=== PATIENT | female | born 2005 | race Caucasian/White ===

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

== ENCOUNTER → 2024-02-25 | Outpatient (CLI) | payer OTHER ==
[~2024-02-25] MED LIST changes: +ONDA4ODT MM; +Prednisone20 MG PO
[2024-03-04 15:39] LABS: C DIFFICILE DNA NEGATIVE (Negative)
[2024-03-08 06:26] LABS: CALPROTECTIN,FECAL 2650 ug/g (<=49)
== END ==
LOC: LAB SHORT 11:45 → LAB 11:45
PROVIDERS: Pediatrics Pediatric Gastroenterology
DX: K50.80 Crohn's disease of both small and large intestine without complications (principal)
CPT/HCPCS: 83993; 87493

== ENCOUNTER 2024-03-18 10:54 | Inpatient (IN) | payer OTHER ==
[~2024-03-18] VITALS: Ht 160 cm; Wt 54.4 kg
[2024-03-18] MEDS ORDERED: NS 1,000 ML IV SCH ×3 (11:30→23:05)
[2024-03-18] MEDS ORDERED: Scopolamine Hydrobromide Patch TOP ONE (11:30)
[2024-03-18 11:58] LABS: BASOPHILS ABSOLUTE AUTO 0.12 K/mm3 (0.00-0.23); BASOPHILS PERCENT AUTO 1 % (0-2); EOSINOPHILS ABSOLUTE AUTO 0.11 K/mm3 (0.00-0.68); EOSINOPHILS PERCENT AUTO 1 % (0-6); Hematocrit 37.9 % (33.0-51.0); Hemoglobin 12.3 g/dL (11.5-16.0); IMMATURE GRAN ABSOLUTE AUTO 0.08 K/mm3 (0.00-0.10); IMMATURE GRAN PERCENT AUTO 1 % (0-1); LYMPHOCYTES ABSOLUTE AUTO 3.61 K/mm3 (0.84-5.20); LYMPHOCYTES PERCENT AUTO 27 % (21-46); MONOCYTES ABSOLUTE AUTO 1.89 K/mm3 (0.16-1.47); MONOCYTES PERCENT AUTO 14 % (4-13); Mean Corpuscular HGB 27.1 pg (26.0-34.0); Mean Corpuscular HGB Conc 32.5 g/dL (31.5-36.5); Mean Corpuscular Volume 84 fL (80-100); NEUTROPHILS ABSOLUTE AUTO 7.46 K/mm3 (1.96-9.15); NEUTROPHILS PERCENT AUTO 56 % (41-73); Platelet Count 408 K/mm3 (150-400); RDW Coefficient Variation 14.2 % (11.7-14.2); RDW Standard Deviation 43.3 fL (35.1-46.3); Red Blood Cell Count 4.54 M/mm3 (3.80-5.20); White Blood Cell Count 13.27 K/mm3 (4.00-11.30)
[2024-03-18 12:16] LABS: Albumin, Blood 2.4 g/dL (3.4-5.0); Albumin/Globulin Ratio 0.4 (0.8-1.8); Bilirubin, Total 0.2 mg/dL (0.1-1.0); Bun/Creatinine Ratio 13.1 (12.0-20.0); Calcium, Blood 9.1 mg/dL (8.5-10.1); Creatinine, Blood 0.76 mg/dL (0.40-1.00); Globulin, Blood 6.3 g/dL (2.2-4.0); Potassium, Blood 3.8 mmol/L (3.5-5.5); Total Protein, Blood 8.7 g/dL (6.4-8.2)
[2024-03-18] MEDS ORDERED: Ondansetron HCl 2 MG / ML 2ML Vial IV ONE (15:40)
[2024-03-18] MEDS ORDERED: Cefepime HCl 1,000 MG in NS 100 ML IV ONE (17:45)
[2024-03-18] MEDS ORDERED: Ondansetron HCl 2 MG / ML 2ML Vial IV PRN (23:05)
[2024-03-18] MEDS ORDERED: FLU VACC TS2024-25(6MOS UP)/PF 45 MCG/0.5 ML SYRINGE IM SCH (23:05)
[2024-03-18] MEDS ORDERED: FentaNYL Citrate 50 MCG/ML 2 ML Injection IV PRN (23:05)
[2024-03-18] MEDS ORDERED: Piperacillin/Tazobactam Sod 4.5 GM in NS 100 ML IV SCH (23:23)
[2024-03-18] MEDS ORDERED: Albumin (Human) 25gm/100ml 100 ML IV ONE (23:25)
[2024-03-18 23:30] VITALS: BP 111/86
--- NOTE | 2024-03-19 06:03 | NUR ---
SHIFT SUMMARY: RESUMED CARE FOR THIS PT @ 0115. PT SLEPT THROUGHOUT THE MORNING. NO ACUTE CHANGES OR COMPLICATIONS. BED IN LOW POSITION, CALL LIGHT WITHIN REACH. WILL CONTINUE TO MONITOR.
[2024-03-19 06:10] VITALS: BP 99/58
[2024-03-19 06:31] LABS: BASOPHILS ABSOLUTE AUTO 0.11 K/mm3 (0.00-0.23); BASOPHILS PERCENT AUTO 1 % (0-2); EOSINOPHILS ABSOLUTE AUTO 0.22 K/mm3 (0.00-0.68); EOSINOPHILS PERCENT AUTO 2 % (0-6); Hematocrit 30.1 % (33.0-51.0); Hemoglobin 9.7 g/dL (11.5-16.0); IMMATURE GRAN ABSOLUTE AUTO 0.04 K/mm3 (0.00-0.10); IMMATURE GRAN PERCENT AUTO 0 % (0-1); LYMPHOCYTES PERCENT AUTO 28 % (21-46); MONOCYTES ABSOLUTE AUTO 1.94 K/mm3 (0.16-1.47); MONOCYTES PERCENT AUTO 16 % (4-13); Mean Corpuscular HGB 26.8 pg (26.0-34.0); Mean Corpuscular HGB Conc 32.2 g/dL (31.5-36.5); Mean Corpuscular Volume 83 fL (80-100); Mean Platelet Volume 8.2 fL (9.1-12.4); NEUTROPHILS ABSOLUTE AUTO 6.74 K/mm3 (1.96-9.15); NEUTROPHILS PERCENT AUTO 54 % (41-73); Platelet Count 371 K/mm3 (150-400); RDW Coefficient Variation 14.2 % (11.7-14.2); Red Blood Cell Count 3.62 M/mm3 (3.80-5.20); White Blood Cell Count 12.55 K/mm3 (4.00-11.30)
[2024-03-19 07:26] LABS: Albumin, Blood 2.6 g/dL (3.4-5.0); Albumin/Globulin Ratio 0.5 (0.8-1.8); Bilirubin, Total 0.4 mg/dL (0.1-1.0); Bun/Creatinine Ratio 8.4 (12.0-20.0); Calcium, Blood 8.6 mg/dL (8.5-10.1); Creatinine, Blood 0.72 mg/dL (0.40-1.00); Globulin, Blood 5.2 g/dL (2.2-4.0); Potassium, Blood 3.8 mmol/L (3.5-5.5); Total Protein, Blood 7.8 g/dL (6.4-8.2)
[2024-03-19 08:14] VITALS: BP 105/70
[2024-03-19] MEDS ORDERED: PredniSONE 20 MG Tab PO SCH (09:00)
--- NOTE | 2024-03-19 10:49 | NUR ---
RECIEVED A CALL FROM [facility], CURRENTLY NO BEDS AVAILABLE, PT IS STILL ON THE WAITING LIST
[2024-03-19 10:57] LABS: Adenovirus F 40/41 Not Detected (NOT DETECT); Astrovirus Not Detected (NOT DETECT); Campylobacter Sp Not Detected (NOT DETECT); Cryptosporidium Not Detected (NOT DETECT); Cyclospora Cayetanensis Not Detected (NOT DETECT); E. Coli O157 Not Detected (NOT DETECT); Entamoeba Histolytica Not Detected (NOT DETECT); Enteroaggregative E. coli-EAEC Not Detected (NOT DETECT); Enteropathogenic E. coli-EPEC Not Detected (NOT DETECT); Enterotoxigenic E. coli-ETEC Not Detected (NOT DETECT); Giardia Lamblia Not Detected (NOT DETECT); Norovirus GI/GII Not Detected (NOT DETECT); Plesiomonas Shigelloides Not Detected (NOT DETECT); Rotavirus A Not Detected (NOT DETECT); Salmonella Sp Not Detected (NOT DETECT); Sapovirus Not Detected (NOT DETECT); Shiga Toxin-prod E. coli-STEC Not Detected (NOT DETECT); Shigella/Enteroin E. coli-EIEC Not Detected (NOT DETECT); Vibrio Cholerae Not Detected (NOT DETECT); Vibrio Sp Not Detected (NOT DETECT); Yersinia Enterocolitica Not Detected (NOT DETECT)
[2024-03-19 15:27] VITALS: BP 84/57
[2024-03-19 15:29] VITALS: BP 91/55
[2024-03-19] MEDS ORDERED: Vitamin D1000 UNI1 PO (16:39)
[2024-03-19] MEDS ORDERED: SKYRIZI600 MG/10 IV (16:40)
--- NOTE | 2024-03-19 17:04 | NUR ---
SUMMARY PT RESTING IN BED VISITING WITH FAMILY, PT HAS BEEN PLEASANT AND COOPERATIVE WITH CARE T/O THE DAY, HAS DECLINED ANY PAIN MEDICINE T/O THE DAY, UP IN THE ROOM INDEPENDENTLY, CURRENTLY WAITING FOR A BED AT [facility], VSS, WILL CONTINUE TO MONITOR
[2024-03-19 20:31] VITALS: BP 96/60
[2024-03-20] MEDS ORDERED: NS 250 ML IV PRN (00:20)
--- NOTE | 2024-03-20 01:44 | NUR ---
RETURNED CALL TO YUNIOR ALVAREZ AT [facility] TO GIVE UPDATE ON PATIENT. UPDATE-PATIENT STILL HAVING LOOSE BM'S, GI PANEL DONE AND WAS NEGATIVE. 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 PATIENT REPORTED NAUSEA AND OVERALL NOT FEELING WELL-DENIED ZOFRAN AT THIS TIME. PATIENT REPORTS PAIN-DENIED NEED FOR PAIN MEDICATIONS AT THIS TIME.
[2024-03-20 04:53] VITALS: BP 94/59
--- NOTE | 2024-03-20 05:12 | NUR ---
SHIFT SUMMARY. PATIENT IS A&OX4. PATIENT IS INDEPENDENT IN ROOM. PATIENT HAS PINROSE DRAIN IN. PATIENT CALLS APPROPRIATELY AND IS ABLE TO MAKE HER NEEDS KNOWN. PATIENT REPORTS THIS SHIFT THAT SHE IS NOT FEELING WELL-THIS RN ASSESSED FOR NAUSEA/PAIN-PATIENT DENIED NEED FOR PAIN OR ANTINAUSEA MEDS. UPDATE GIVEN TO ANTONIO AT [facility]-AT THIS TIME ANTONIO REPORTS THAT THEY DO NOT KNOW WHEN A BED WILL BE AVALIABLE AND THEY WILL CALL APPROX. ONCE A DAY FOR UPDATE UNTIL BED BECOMES AVALIABLE. TELE IS ON WITH LEADS IN PLACE-NO NOTED EVENTS THIS SHIFT. BED IS LOCKED IN THE LOWEST POSITION WITH CALL LIGHT IN REACH. CARE IS ONGOING. REACH. CARE IS ONGOING.
[2024-03-20 05:32] LABS: BASOPHILS ABSOLUTE AUTO 0.09 K/mm3 (0.00-0.23); BASOPHILS PERCENT AUTO 1 % (0-2); EOSINOPHILS ABSOLUTE AUTO 0.09 K/mm3 (0.00-0.68); EOSINOPHILS PERCENT AUTO 1 % (0-6); Hematocrit 29.5 % (33.0-51.0); Hemoglobin 9.3 g/dL (11.5-16.0); IMMATURE GRAN ABSOLUTE AUTO 0.09 K/mm3 (0.00-0.10); IMMATURE GRAN PERCENT AUTO 1 % (0-1); LYMPHOCYTES ABSOLUTE AUTO 4.39 K/mm3 (0.84-5.20); LYMPHOCYTES PERCENT AUTO 29 % (21-46); MONOCYTES ABSOLUTE AUTO 2.66 K/mm3 (0.16-1.47); MONOCYTES PERCENT AUTO 18 % (4-13); Mean Corpuscular HGB 26.8 pg (26.0-34.0); Mean Corpuscular HGB Conc 31.5 g/dL (31.5-36.5); Mean Corpuscular Volume 85 fL (80-100); Mean Platelet Volume 8.8 fL (9.1-12.4); NEUTROPHILS ABSOLUTE AUTO 7.65 K/mm3 (1.96-9.15); NEUTROPHILS PERCENT AUTO 51 % (41-73); Platelet Count 384 K/mm3 (150-400); RDW Coefficient Variation 14.6 % (11.7-14.2); RDW Standard Deviation 45.5 fL (35.1-46.3); Red Blood Cell Count 3.47 M/mm3 (3.80-5.20); White Blood Cell Count 14.97 K/mm3 (4.00-11.30)
[2024-03-20 05:52] LABS: Albumin, Blood 2.4 g/dL (3.4-5.0); Albumin/Globulin Ratio 0.5 (0.8-1.8); Bilirubin, Total 0.2 mg/dL (0.1-1.0); Bun/Creatinine Ratio 12.9 (12.0-20.0); Calcium, Blood 8.9 mg/dL (8.5-10.1); Creatinine, Blood 0.62 mg/dL (0.40-1.00); Globulin, Blood 5.1 g/dL (2.2-4.0); Potassium, Blood 4.3 mmol/L (3.5-5.5); Total Protein, Blood 7.5 g/dL (6.4-8.2)
[2024-03-20] MEDS ORDERED: NS 1,000 ML IV SCH (07:00)
[2024-03-20 07:57] VITALS: BP 96/59
[2024-03-20] MEDS ORDERED: Cholecalciferol 1000 Unit Tablet (=25MCG) PO SCH (09:00)
[2024-03-20] MEDS ORDERED: Fluticasone 0.05% Nasal Spray SCH ×2 (09:00)
[2024-03-20] MEDS ORDERED: Lactobacil 2-S.Thermo-Bifido 1 1 Cap PO SCH (09:00)
[2024-03-20] MEDS ORDERED: Calcium Carbonate 500 MG Tab Chew PO PRN (09:35)
--- NOTE | 2024-03-20 11:47 | NUR ---
"Spiritual Care Visit | Pt. Request Pt. is awake in bed when she welcomes my visit. Mom is at bedside. Pt. verbalized curiousity as to whom had contaced this head of strategy. Normalized the Pt. experience and listened with interest and empathy. Facilitated some life review, and considered some matters of es and belief. The Pt. displayed a growing sense of trust and verbalized gratitude for the spiritual care visit."
[2024-03-20] MEDS ORDERED: Multivitamins/Minerals 1 Tab PO SCH (12:00)
[2024-03-20 16:43] VITALS: BP 113/82
[2024-03-20] MEDS ORDERED: Ferrous Sulfate 325 MG Tab PO SCH (17:00)
--- NOTE | 2024-03-20 18:29 | NUR ---
END OF SHIFT SUMMARY: A&Ox4. PLEASANT AND COOPERATIVE WITH CARE. CALLS APPROPRIATELY AND IS ABLE TO ADVOCATE NEEDS EFFECTIVELY. AMBULATES INDEPENDENTLY WITHIN THE ROOM. CONTINENT OF BOWEL AND BLADDER WITH SOME ANAL LEAKAGE SECONDARY TO PINROSE PLACEMENT AFTER ANAL FISTULA REPAIR (S/P 2 WEEKS). LBM TODAY BUT DOES NOT FEEL THOUGH IT S COMPLETED . MEDS WHOLE, DVN-EX-R-TIME WITH FLUIDS. TELE PAIN. TWO WEEKS S/P PERIANAL FISTULA REPAIR WITH KIRAN DRAIN PLACEMENT; DRAIN PATENT. PATIENT C / O GENERALIZED MALAISE WITHOUT FEVER TODAY. WAS SCHEDULED FOR HOME INFUSION OF SKYRIZI WITH [facility] INFUSION NURSE, BUT WAS CANCELED DUE TO HER BEING IN THE HOSPITAL. MEDICATION IS AT PATIENT'S HOUSE AND MOM IS WONDERING IF THEY SHOULD HAVE THE INFUSION NURSE COME HERE TO ADMINISTER MEDICATION; ADVISED SHE FOLLOW-UP WITH [facility] INFUSION NURSE FOR FURTHER INSTRUCTION. BED IN LOWEST POSITION. CALL LIGHT WITHIN REACH. ALL NEEDS MET. REPORT TO ONCOMING NURSE.
[2024-03-20 20:51] VITALS: BP 118/84
[2024-03-21 04:40] VITALS: BP 86/55
[2024-03-21] MEDS ORDERED: Lactated Ringer's 500 ML IV ONE (04:55)
[2024-03-21 05:04] LABS: BASOPHILS ABSOLUTE AUTO 0.08 K/mm3 (0.00-0.23); BASOPHILS PERCENT AUTO 1 % (0-2); EOSINOPHILS ABSOLUTE AUTO 0.11 K/mm3 (0.00-0.68); EOSINOPHILS PERCENT AUTO 1 % (0-6); Hematocrit 26.2 % (33.0-51.0); Hemoglobin 8.4 g/dL (11.5-16.0); IMMATURE GRAN PERCENT AUTO 1 % (0-1); LYMPHOCYTES ABSOLUTE AUTO 5.11 K/mm3 (0.84-5.20); LYMPHOCYTES PERCENT AUTO 40 % (21-46); MONOCYTES ABSOLUTE AUTO 1.97 K/mm3 (0.16-1.47); MONOCYTES PERCENT AUTO 15 % (4-13); Mean Corpuscular HGB 27.3 pg (26.0-34.0); Mean Corpuscular HGB Conc 32.1 g/dL (31.5-36.5); Mean Corpuscular Volume 85 fL (80-100); Mean Platelet Volume 8.7 fL (9.1-12.4); NEUTROPHILS ABSOLUTE AUTO 5.46 K/mm3 (1.96-9.15); NEUTROPHILS PERCENT AUTO 43 % (41-73); Platelet Count 372 K/mm3 (150-400); RDW Coefficient Variation 14.9 % (11.7-14.2); RDW Standard Deviation 45.8 fL (35.1-46.3); Red Blood Cell Count 3.08 M/mm3 (3.80-5.20); White Blood Cell Count 12.83 K/mm3 (4.00-11.30)
[2024-03-21 05:38] LABS: Albumin, Blood 2.3 g/dL (3.4-5.0); Albumin/Globulin Ratio 0.5 (0.8-1.8); Bilirubin, Total 0.1 mg/dL (0.1-1.0); Bun/Creatinine Ratio 7.7 (12.0-20.0); Creatinine, Blood 0.65 mg/dL (0.40-1.00); Globulin, Blood 4.9 g/dL (2.2-4.0); Potassium, Blood 3.7 mmol/L (3.5-5.5); Total Protein, Blood 7.2 g/dL (6.4-8.2)
[2024-03-21 05:49] VITALS: BP 111/75
--- NOTE | 2024-03-21 05:55 | NUR ---
PATIENT REPORTS HER CHEST FEELS TIGHT AND LIKE ITS RACING.
--- NOTE | 2024-03-21 06:23 | NUR ---
HOSPITALIST CONTACTED. DR. RUFF CONTACTED FOLLOWING PATIENTS EKG SHOWING AN UNDERTERMINED RHYTHM.
--- NOTE | 2024-03-21 06:34 | NUR ---
AT BEDSIDE. REVIEWED EKG AND PATIENTS LABS. ORDERED FOR A REPEAT HNH IN 4 HOURS R/T A DECREASE IN HEAMAGLOBIN AND TO CONTINUE TO MONITOR WITH TELEMETRY.
--- NOTE | 2024-03-21 06:57 | NUR ---
SHIFT SUMMARY. PATIENT IS A&OX4. PATIENT REPORTS INCREASED TIREDNESS THIS SHIFT. PATIENT REPORTS THAT HER STOLLD HAVE A PINK COLOR TO THEM. PATIENTS Hgb HAS DECREASED FROM 9.4 TO 8.3-SEE PREVIOUS NOTE. TELE ON WITH LEADS IN PLACE-NOTED EPISODES THIS SHIFT; SEE PREVIOUS NOTES. PATIENT CALLS APPROPRIATELY. PATIENT RECEIVING ABX PER ORDERS. BED IS LOCKED IN THE LOWEST POSITION WITH CALL LIGHT IN REACH. CARE IS ONGOING.
[2024-03-21 07:38] VITALS: BP 99/60
[2024-03-21] MEDS ORDERED: NS 1,000 ML IV SCH (09:00)
[2024-03-21 10:12] LABS: Hematocrit 29.3 % (33.0-51.0); Hemoglobin 9.4 g/dL (11.5-16.0)
--- NOTE | 2024-03-21 13:49 | NUR ---
PATIENT DENIED IRON AND MVI STATING SHE WAS TOLD BY HER GI THAT SHE NEEDS TO HAVE THESE DONE INFUSIONS RATHER THAN PILLS DUE TO HER CROHN'S.
--- NOTE | 2024-03-21 13:49 | NUR ---
CALL TO [facility]: PATIENT TELE READING SINUS <--> SINUS ARRYTHMIA.
[2024-03-21 14:45] LABS: Hemoglobin 10.9 g/dL (11.5-16.0); Mean Corpuscular HGB 26.8 pg (26.0-34.0); Mean Corpuscular HGB Conc 32.1 g/dL (31.5-36.5); Mean Corpuscular Volume 84 fL (80-100); Mean Platelet Volume 8.5 fL (9.1-12.4); Platelet Count 418 K/mm3 (150-400); RDW Coefficient Variation 14.9 % (11.7-14.2); RDW Standard Deviation 45.5 fL (35.1-46.3); Red Blood Cell Count 4.06 M/mm3 (3.80-5.20); White Blood Cell Count 10.59 K/mm3 (4.00-11.30)
[2024-03-21 16:05] VITALS: BP 93/57
[2024-03-21 19:15] VITALS: BP 108/67
--- NOTE | 2024-03-21 19:19 | NUR ---
DAY SHIFT SUMMARY: A&Ox4. PLEASANT AND COOPERATIVE WITH CARE. CALLS APPROPRIATELY AND IS ABLE TO ADVOCATE NEEDS EFFECTIVELY. AMBULATES INDEPENDENTLY WITHIN THE ROOM. CONTINENT OF BOWEL AND BLADDER; ATTENDS FOR WOUND DRAINAGE AND SEEPAGE SECONDARY TO S/P PERIRECTAL FISTULA REPAIR. TELE SINUS TO SINUS ARRHYTHMIA THROUGHOUT THE DAY. PROVIDER AND RESIDENT NOTIFIED. NO C / O PAIN. SOME NAUSEA FOR WHICH SHE DECLINED OFFER OF ANTIEMETIC AT FIRST, BUT EVENTUALLY AGREED TO DOSE OF ONDANSETRON. HGB STABILIZED; NO NEED FOR BLOOD ADMINISTRATION. BED IN LOWEST POSITION. CALL LIGHT WITHIN REACH. ALL NEEDS MET. REPORT TO ONCOMING RN.
[2024-03-21] MEDS ORDERED: DiphenhydrAMINE HCL 25 MG Cap PO PRN (23:10)
[2024-03-22 03:21] VITALS: BP 100/61
[2024-03-22 05:45] LABS: BASOPHILS ABSOLUTE AUTO 0.05 K/mm3 (0.00-0.23); BASOPHILS PERCENT AUTO 0 % (0-2); EOSINOPHILS ABSOLUTE AUTO 0.11 K/mm3 (0.00-0.68); EOSINOPHILS PERCENT AUTO 1 % (0-6); Hematocrit 27.1 % (33.0-51.0); Hemoglobin 8.6 g/dL (11.5-16.0); IMMATURE GRAN ABSOLUTE AUTO 0.15 K/mm3 (0.00-0.10); IMMATURE GRAN PERCENT AUTO 1 % (0-1); LYMPHOCYTES PERCENT AUTO 44 % (21-46); MONOCYTES PERCENT AUTO 13 % (4-13); Mean Corpuscular HGB Conc 31.7 g/dL (31.5-36.5); Mean Corpuscular Volume 85 fL (80-100); Mean Platelet Volume 8.9 fL (9.1-12.4); NEUTROPHILS ABSOLUTE AUTO 4.73 K/mm3 (1.96-9.15); NEUTROPHILS PERCENT AUTO 41 % (41-73); Platelet Count 379 K/mm3 (150-400); RDW Coefficient Variation 14.7 % (11.7-14.2); RDW Standard Deviation 45.1 fL (35.1-46.3); Red Blood Cell Count 3.19 M/mm3 (3.80-5.20); White Blood Cell Count 11.64 K/mm3 (4.00-11.30)
[2024-03-22 06:02] LABS: Albumin, Blood 2.2 g/dL (3.4-5.0); Albumin/Globulin Ratio 0.4 (0.8-1.8); Bilirubin, Total 0.2 mg/dL (0.1-1.0); Bun/Creatinine Ratio 8.7 (12.0-20.0); Calcium, Blood 8.8 mg/dL (8.5-10.1); Creatinine, Blood 0.69 mg/dL (0.40-1.00); Potassium, Blood 3.5 mmol/L (3.5-5.5); Total Protein, Blood 7.2 g/dL (6.4-8.2)
[2024-03-22 07:12] VITALS: BP 100/70
[2024-03-22] MEDS ORDERED: CENTRUM SILVER1 EAC2 PO (11:39)
[2024-03-22] MEDS ORDERED: FERSU300 PO (11:39)
[2024-03-22] MEDS ORDERED: PRED20 PO (11:40)
[2024-03-22] MEDS ORDERED: VISBIOME 112.51 EACH PO (11:40)
[2024-03-22] MEDS ORDERED: AMOCLA250S PO (11:43)
--- NOTE | 2024-03-22 14:52 | NUR ---
DISCHARGE SUMMARY: A&Ox4. PLEASANT AND COOPERATIVE WITH CARE. CALLS APPROPRIATELY AND IS ABLE TO ADVOCATE NEEDS EFFECTIVELY. AMBULATES INDEPENDENTLY WITHIN THE ROOM. CONTINENT OF BOWEL AND BLADDER. CONTINUES TO EXPERIENCE FREQUENT DIARRHEA R/T CROHN'S FLARE. MEDS WHOLE WITH FLUIDS. TELE SINUS <--> SINUS ARRYTHMIA DETERMINED TO BE RELATED TO ANXIETY. NO C/O PAIN OR DISCOMFORT. PINROSE IN PLACE AND DRAINING TO GRAVITY. SIGNIFICANTLY DECREASED SWELLING AND PAIN IN RECTUM AND LABIA R/T CELLULITIS. MEDICATIONS FAXED TO [facility]. INSTRUCTED TO FOLLOW-UP WITH PCP AND [facility] SURGEON AND INFUSION NURSE ALREADY DISCUSSED. PT LEFT FLOOR AT 1210 WITH ALL BELONGINGS AND DISCHARGE PACKET, ESCORTED BY FATHER, WHO ALSO PROVIDED TRANSPORTATION.
== END 2024-03-22 12:06 | disposition home or self-care (01) | DRG 862 ==
LOC: ER 10:54 → ERHOLD 10:57 → MEDS 10:57 → ER 21:52 → MEDS 21:52 → ERHOLD 21:52 → MEDS 23:11 → ERHOLD 23:11 → MEDS 23:11
PROVIDERS: Family Medicine; Physician Assistant; Student in an Organized Health Care Education/Training Program; ADMIT Internal Medicine
DX: T81.44XA Sepsis following a procedure, initial encounter (principal); A41.9 Sepsis, unspecified organism; L03.317 Cellulitis of buttock; K50.90 Crohn's disease, unspecified, without complications; Z79.899 Other long term (current) drug therapy; K60.30 Anal fistula, unspecified; F32.A Depression, unspecified; D64.9 Anemia, unspecified; R09.81 Nasal congestion; I95.9 Hypotension, unspecified
CPT/HCPCS: 36415; 72193; 80053; 83690; 83735; 83880; 85014; 85018; 85025; 85027; 86850; 86900; 86901; 87040; 87507; 96361; 96365-59; 96375; 99284-25; A9270; J0692; J2405; J2543; J7030; J7050; J7120; J7512; P9047; Q9967

== ENCOUNTER → 2024-03-29 | Outpatient (CLI) | payer OTHER ==
[~2024-03-29] MED LIST changes: +AMOCLA250S PO; +CENTRUM SILVER1 EAC2 PO; +FERSU300 PO; +PRED20 PO; +SKYRIZI600 MG/10 IV; +VISBIOME 112.51 EACH PO; +Vitamin D1000 UNI1 PO
[2024-03-29 17:44] LABS: BASOPHILS ABSOLUTE AUTO 0.11 K/mm3 (0.00-0.23); BASOPHILS PERCENT AUTO 1 % (0-2); EOSINOPHILS ABSOLUTE AUTO 0.08 K/mm3 (0.00-0.68); EOSINOPHILS PERCENT AUTO 1 % (0-6); Hematocrit 35.2 % (33.0-51.0); Hemoglobin 11.3 g/dL (11.5-16.0); IMMATURE GRAN ABSOLUTE AUTO 0.07 K/mm3 (0.00-0.10); IMMATURE GRAN PERCENT AUTO 1 % (0-1); LYMPHOCYTES PERCENT AUTO 31 % (21-46); MONOCYTES ABSOLUTE AUTO 2.21 K/mm3 (0.16-1.47); MONOCYTES PERCENT AUTO 15 % (4-13); Mean Corpuscular HGB 27.5 pg (26.0-34.0); Mean Corpuscular HGB Conc 32.1 g/dL (31.5-36.5); Mean Corpuscular Volume 86 fL (80-100); Mean Platelet Volume 8.4 fL (9.1-12.4); NEUTROPHILS ABSOLUTE AUTO 8.11 K/mm3 (1.96-9.15); NEUTROPHILS PERCENT AUTO 53 % (41-73); Platelet Count 403 K/mm3 (150-400); RDW Coefficient Variation 14.4 % (11.7-14.2); RDW Standard Deviation 44.5 fL (35.1-46.3); Red Blood Cell Count 4.11 M/mm3 (3.80-5.20); White Blood Cell Count 15.28 K/mm3 (4.00-11.30)
[2024-03-29 17:59] LABS: C-REACTIVE PROTEIN, EXT RANGE 8.36 mg/dL (0.000-0.300)
[2024-03-29 18:09] LABS: Albumin, Blood 2.6 g/dL (3.4-5.0); Albumin/Globulin Ratio 0.5 (0.8-1.8); Bilirubin, Total 0.3 mg/dL (0.1-1.0); Bun/Creatinine Ratio 12.7 (12.0-20.0); Calcium, Blood 8.6 mg/dL (8.5-10.1); Creatinine, Blood 0.87 mg/dL (0.40-1.00); Globulin, Blood 5.3 g/dL (2.2-4.0); Potassium, Blood 4.4 mmol/L (3.5-5.5); Total Protein, Blood 7.9 g/dL (6.4-8.2)
== END ==
LOC: LAB SHORT 17:00 → LAB 17:00
PROVIDERS: Pediatrics Pediatric Gastroenterology
DX: K50.80 Crohn's disease of both small and large intestine without complications (principal)
CPT/HCPCS: 80053; 85025; 85651; 86140

== ENCOUNTER 2024-03-31 14:26 | Inpatient (IN) | payer OTHER ==
[~2024-03-31] VITALS: Ht 160 cm; Wt 63.7 kg
[2024-03-31] MEDS ORDERED: Ondansetron HCl 2 MG / ML 2ML Vial IV PRN ×2 (14:40→20:00)
[2024-03-31] MEDS ORDERED: NS 1,000 ML IV ONE (14:40)
[2024-03-31 15:12] LABS: BASOPHILS ABSOLUTE AUTO 0.09 K/mm3 (0.00-0.23); BASOPHILS PERCENT AUTO 1 % (0-2); EOSINOPHILS ABSOLUTE AUTO 0.11 K/mm3 (0.00-0.68); EOSINOPHILS PERCENT AUTO 1 % (0-6); Hematocrit 36.6 % (33.0-51.0); Hemoglobin 11.9 g/dL (11.5-16.0); IMMATURE GRAN ABSOLUTE AUTO 0.11 K/mm3 (0.00-0.10); IMMATURE GRAN PERCENT AUTO 1 % (0-1); LYMPHOCYTES ABSOLUTE AUTO 2.91 K/mm3 (0.84-5.20); LYMPHOCYTES PERCENT AUTO 20 % (21-46); MONOCYTES ABSOLUTE AUTO 1.76 K/mm3 (0.16-1.47); MONOCYTES PERCENT AUTO 12 % (4-13); Mean Corpuscular HGB 27.4 pg (26.0-34.0); Mean Corpuscular HGB Conc 32.5 g/dL (31.5-36.5); Mean Corpuscular Volume 84 fL (80-100); Mean Platelet Volume 8.7 fL (9.1-12.4); NEUTROPHILS ABSOLUTE AUTO 9.65 K/mm3 (1.96-9.15); NEUTROPHILS PERCENT AUTO 66 % (41-73); Platelet Count 396 K/mm3 (150-400); RDW Coefficient Variation 14.5 % (11.7-14.2); RDW Standard Deviation 44.1 fL (35.1-46.3); Red Blood Cell Count 4.34 M/mm3 (3.80-5.20); White Blood Cell Count 14.63 K/mm3 (4.00-11.30)
[2024-03-31 15:25] LABS: Alanine Aminotransfer (ALT/SGP 22 U/L (12-78); Albumin, Blood 2.5 g/dL (3.4-5.0); Albumin/Globulin Ratio 0.4 (0.8-1.8); Alk Phos 78 U/L (45-116); Anion Gap 10 mmol/L (3-11); Aspartate Aminotrans (AST/SGOT 38 U/L (12-37); Beta HCG, Quantitative, Serum <1 mIU/mL (0-3); Bilirubin, Total 0.3 mg/dL (0.1-1.0); Blood Urea Nitrogen 8 mg/dL (8-21); Bun/Creatinine Ratio 11.5 (12.0-20.0); CO2, Blood 27 mmol/L (21-32); Calcium, Blood 9.3 mg/dL (8.5-10.1); Chloride, Blood 104 mmol/L (98-108); Globulin, Blood 6.4 g/dL (2.2-4.0); Glomerular Filtration Rate 128 (60-); Glucose, Blood 96 mg/dL (70-99); Potassium, Blood 4.6 mmol/L (3.5-5.5); Sodium, Blood 136 mmol/L (136-145); Total Protein, Blood 8.9 g/dL (6.4-8.2)
[2024-03-31] MEDS ORDERED: Piperacillin/Tazobactam Sod 4.5 GM in NS 100 ML IV ONE (19:05)
[2024-03-31] MEDS ORDERED: Lactated Ringer's 1,000 ML IV SCH (20:00)
[2024-03-31] MEDS ORDERED: Morphine Sulfate 4 MG/1 ML Injection IV PRN (20:00)
[2024-03-31 20:45] LABS: C-REACTIVE PROTEIN, EXT RANGE 13.6 mg/dL (0.000-0.300); Magnesium, Blood 1.9 mg/dL (1.6-2.4)
[2024-03-31] MEDS ORDERED: NS 250 ML IV PRN (20:45)
[2024-03-31] MEDS ORDERED: Acetaminophen 325 MG TABLET PO PRN (20:55)
[2024-03-31] MEDS ORDERED: Ketorolac Tromethamine 15mg Vial IV ONE (21:00)
[2024-03-31] MEDS ORDERED: Ciprofloxacin 400MG/D5 200ML 200 ML IV SCH (21:00)
[2024-03-31] MEDS ORDERED: LORazepam 2 MG/ML 1ML Injection IV ONE (21:00)
[2024-03-31 21:20] VITALS: BP 113/76
[2024-03-31] MEDS ORDERED: FLU VACC TS2024-25(6MOS UP)/PF 45 MCG/0.5 ML SYRINGE IM ONE (22:00)
[2024-03-31 22:41] LABS: Source, Urine Clean Catch
[2024-03-31 22:45] LABS: Bilirubin, Urine Neg (Neg); Blood, Urine 2+ (Neg); Glucose Qualitative, Urine Neg (Neg); Ketones, Urine 2+ (Neg); Leukocyte Esterase, Urine 2+ (Neg); Nitrite, Urine Neg (Neg); Protein, Urine 2+ (Neg); Specific Gravity, Urine 1.015 (1.003-1.022); Urobilinogen, Urine NORM (Normal)
[2024-03-31 22:54] LABS: Appearance, Urine Hazy (Clear); Color, Urine Yellow (P-Yellow)
[2024-03-31 22:55] LABS: Bacteria Mod /hpf; Red Blood Cells, Urine 0-2 /hpf (0-2); Squamous Epithelial Cells Mod /hpf (Few)
[2024-04-01] VITALS (7 sets, daily range): BP systolic 84–115; BP diastolic 59–82
[2024-04-01] MEDS ORDERED: MethylPREDNISolone Sod Succ 40 MG VIAL IV SCH
[2024-04-01] MEDS ORDERED: MetroNIDAZOLE 500MG/NS 100 ml 100 ML IV SCH
[2024-04-01 00:06] LABS: Adenovirus F 40/41 Not Detected (NOT DETECT); Astrovirus Not Detected (NOT DETECT); Campylobacter Sp Not Detected (NOT DETECT); Cryptosporidium Not Detected (NOT DETECT); Cyclospora Cayetanensis Not Detected (NOT DETECT); E. Coli O157 Not Detected (NOT DETECT); Entamoeba Histolytica Not Detected (NOT DETECT); Enteroaggregative E. coli-EAEC Not Detected (NOT DETECT); Enteropathogenic E. coli-EPEC Not Detected (NOT DETECT); Enterotoxigenic E. coli-ETEC Not Detected (NOT DETECT); Giardia Lamblia Not Detected (NOT DETECT); Norovirus GI/GII Not Detected (NOT DETECT); Plesiomonas Shigelloides Not Detected (NOT DETECT); Rotavirus A Not Detected (NOT DETECT); Salmonella Sp Not Detected (NOT DETECT); Sapovirus Not Detected (NOT DETECT); Shiga Toxin-prod E. coli-STEC Not Detected (NOT DETECT); Shigella/Enteroin E. coli-EIEC Not Detected (NOT DETECT); Vibrio Cholerae Not Detected (NOT DETECT); Vibrio Sp Not Detected (NOT DETECT); Yersinia Enterocolitica Not Detected (NOT DETECT)
--- NOTE | 2024-04-01 02:27 | NUR ---
SHIFT SUMMARY NOC PT A/O X 4. ANXIOUS, BUT PLEASANT AND COOPERATIVE WITH CARE. PT TACHYCARDIC AND FEBRILE UPON ARRIVAL FROM ED WITH COLITIS. PT GIVEN TYLENOL AND TEMP DECREASED TO 97.9F. ATIVAN GIVEN FOR ANXIETY AND PT FELL ASLEEP AND HR DECREASED TO 70'S. PT RECEIVIG IV ABX AND CONTINOUS INFUSION OF LR @ 125 ML/HR WHILE AWAITING COBRA TRANSFER TO [facility] FOR RECTAL SURGERY COMPLICATIONS. PT ABD PAIN BEING MANAGED PER EMAR AND PT ON CONTINOUS BIOX SPO2 >95% ON RA. PT HAD C/O CP IN ED THAT SUBSIDED AND ALL 3 TROPONINS NEGATIVE. PT ON TELE SINUS RHYTHM IN 70'S. GI PCR PANEL CAME BACK NEGATIVE, SO PT NO LONGER IN ENTERIC CONTACT PRECAUTIONS. PT HAS REDNESS IN RECTAL AREA FROM RECENT RECTAL SURGERY WITH PEN ANIL DRAIN PLACEMENT @ [facility] 02/29/24 (PICS IN CHART). PT ALSO COULD BENEFIT FROM PICC LINE PLACEMENT DUE TO MULITPLE RX BEING GIVEN AND CURRENT LENGTH OF STAY UNKNOWN. PT CURRENTLY RESTING WITH BED IN LOWEST POSITION, AND CALL LIGHT WITHIN REACH.
--- NOTE | 2024-04-01 04:45 | NUR ---
PT BP 92/61 MAP (70) HR 73 BPM, TEMP 97.4F ORAL DURING AM VS. BASELINE BP HAS BEEN 115/80. PT ASYMPTOMATIC. 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 HOSPITALIST STATED TO MONITOR MAP AND AM LABS AND IF MAP <65 TO CALL AND GET ORDER FOR BOLUS OF 500 ML LR AND POSSIBLE TRANSFUSION OF PRBC.
[2024-04-01 05:57] LABS: BASOPHILS ABSOLUTE AUTO 0.06 K/mm3 (0.00-0.23); BASOPHILS PERCENT AUTO 1 % (0-2); EOSINOPHILS ABSOLUTE AUTO 0.02 K/mm3 (0.00-0.68); EOSINOPHILS PERCENT AUTO 0 % (0-6); Hematocrit 30.9 % (33.0-51.0); Hemoglobin 9.9 g/dL (11.5-16.0); IMMATURE GRAN ABSOLUTE AUTO 0.05 K/mm3 (0.00-0.10); IMMATURE GRAN PERCENT AUTO 1 % (0-1); LYMPHOCYTES ABSOLUTE AUTO 1.58 K/mm3 (0.84-5.20); LYMPHOCYTES PERCENT AUTO 18 % (21-46); MONOCYTES PERCENT AUTO 3 % (4-13); Mean Corpuscular HGB 27.5 pg (26.0-34.0); Mean Corpuscular Volume 86 fL (80-100); Mean Platelet Volume 9.2 fL (9.1-12.4); NEUTROPHILS ABSOLUTE AUTO 6.84 K/mm3 (1.96-9.15); NEUTROPHILS PERCENT AUTO 77 % (41-73); Platelet Count 290 K/mm3 (150-400); RDW Coefficient Variation 14.4 % (11.7-14.2); RDW Standard Deviation 44.4 fL (35.1-46.3); White Blood Cell Count 8.85 K/mm3 (4.00-11.30)
[2024-04-01 06:21] LABS: C-REACTIVE PROTEIN, EXT RANGE 14.5 mg/dL (0.000-0.300)
[2024-04-01 06:22] LABS: Albumin, Blood 2.3 g/dL (3.4-5.0); Albumin/Globulin Ratio 0.4 (0.8-1.8); Bilirubin, Total 0.3 mg/dL (0.1-1.0); Bun/Creatinine Ratio 9.6 (12.0-20.0); Calcium, Blood 9.2 mg/dL (8.5-10.1); Creatinine, Blood 0.73 mg/dL (0.40-1.00); Globulin, Blood 5.6 g/dL (2.2-4.0); Potassium, Blood 4.1 mmol/L (3.5-5.5); Total Protein, Blood 7.9 g/dL (6.4-8.2)
[2024-04-01] MEDS ORDERED: Enoxaparin 40 MG/0.4 ML SYR SC SCH (09:00)
[2024-04-01] MEDS ORDERED: HyDROXyzine HCl 25 MG Tab PO PRN (10:20)
[2024-04-01] MEDS ORDERED: LORazepam 0.5 MG Tab PO PRN (10:20)
--- NOTE | 2024-04-01 12:49 | NUR ---
PT LOST IV ACCESS- NOTIFIED PT LOST IV ACCESS. DISCUSSED THE OPTION OF PG PLACEMENT OR PICC LINE. PER DR REBOLLAR NO PICC NEEDED AT THIS TIME. REQUESTED A PG FROM [employer]. PG WAS NOT ABLE TO BE PLACED UNTIL 1115. 0800 MED GIVEN ONCE ACCESS WAS REESTABLISHED. IV CIPRO WILL BE GIVEN ONCE FLAGYL IS COMPLETED.
--- NOTE | 2024-04-01 16:14 | NUR ---
SHIFT SUMMARY- PT ALERT AND ORIENTED, ALTHOUGH SHE STATED THIS MORNING SHE WAS HAVING DIFFICULTY TRACKING CONVERSATION. SHE SEEMED A LITTLE DAZED WHEN STAFF TRIED TO TALK TO HER. IV WENT BAD AT THE START OF THE DAY AND A PG WAS PLACED. SPOKE TO PHARMACY ABOUT THE MEDS GIVEN LATE AND WAS INSTRUCTED TO PUSH THE 1600 DOSE TO 1800 AND THEN RESUME NORMAL SCHEDULE FOR IV ABX. RECIEVED A CALL FROM THE TRANSFER CENTER FOR UPDATES. PT STILL AWAITING A BED AT [facility]. PG IN PLACE RUNNING LR AT THIS TIME. PT IN BED, CALL LIGHT IN REACH NO S&S OF DISTRESS NOTED.
[2024-04-01] MEDS ORDERED: Lactobacil 2-S.Thermo-Bifido 1 1 Cap PO SCH (21:00)
[2024-04-02 03:44] VITALS: BP 133/77
--- NOTE | 2024-04-02 04:07 | NUR ---
SHIFT SUMMARY ADMITTED FOR COLITIS/SEPSIS. FULL CODE. IV ANTIB RX AND STEROIDS ARE SCHEDULED. PLAN IS FOR TRANSFER TO [facility] FOR ADVANCED TREATMENT. TELEMETRY: NSR @ 69 BPM. REGULAR DIET. ON RA. INDEPENDENT IN ROOM. A&O X4. LR INFUSING ORDERED. POWERGLIDE IN PLACE - LUE. SHE HAS A RECENTLY REPAIRED COLORECTAL FISTULA WITH DRAIN. ANXIETY MEDICATION GIVEN THIS SHIFT ONCE. LOOSE BM'S REPORTED. HX: CROHN'S DISEASE.
[2024-04-02 05:50] LABS: BASOPHILS ABSOLUTE AUTO 0.02 K/mm3 (0.00-0.23); BASOPHILS PERCENT AUTO 0 % (0-2); EOSINOPHILS PERCENT AUTO 0 % (0-6); Hematocrit 27.9 % (33.0-51.0); IMMATURE GRAN ABSOLUTE AUTO 0.09 K/mm3 (0.00-0.10); IMMATURE GRAN PERCENT AUTO 1 % (0-1); LYMPHOCYTES ABSOLUTE AUTO 1.95 K/mm3 (0.84-5.20); LYMPHOCYTES PERCENT AUTO 16 % (21-46); MONOCYTES ABSOLUTE AUTO 0.76 K/mm3 (0.16-1.47); MONOCYTES PERCENT AUTO 6 % (4-13); Mean Corpuscular HGB 27.6 pg (26.0-34.0); Mean Corpuscular HGB Conc 32.3 g/dL (31.5-36.5); Mean Corpuscular Volume 86 fL (80-100); Mean Platelet Volume 8.7 fL (9.1-12.4); NEUTROPHILS ABSOLUTE AUTO 9.65 K/mm3 (1.96-9.15); NEUTROPHILS PERCENT AUTO 77 % (41-73); Platelet Count 336 K/mm3 (150-400); RDW Coefficient Variation 14.5 % (11.7-14.2); RDW Standard Deviation 44.6 fL (35.1-46.3); Red Blood Cell Count 3.26 M/mm3 (3.80-5.20); White Blood Cell Count 12.47 K/mm3 (4.00-11.30)
[2024-04-02 06:21] LABS: Albumin, Blood 2.1 g/dL (3.4-5.0); Albumin/Globulin Ratio 0.4 (0.8-1.8); Bilirubin, Total 0.1 mg/dL (0.1-1.0); Bun/Creatinine Ratio 10.8 (12.0-20.0); Calcium, Blood 8.3 mg/dL (8.5-10.1); Creatinine, Blood 0.55 mg/dL (0.40-1.00); Potassium, Blood 4.2 mmol/L (3.5-5.5); Total Protein, Blood 7.1 g/dL (6.4-8.2)
[2024-04-02 07:32] VITALS: BP 109/73
[2024-04-02] MEDS ORDERED: Ferrous Sulfate 325 MG Tab PO SCH (08:00)
[2024-04-02] MEDS ORDERED: Cholecalciferol 1000 Unit Tablet (=25MCG) PO SCH (09:00)
[2024-04-02] MEDS ORDERED: Multivitamins/Minerals TAB PO SCH (09:00)
[2024-04-02 15:15] VITALS: BP 109/64
[2024-04-02 19:41] VITALS: BP 114/82
--- NOTE | 2024-04-02 20:09 | NUR ---
SHIFT SUMMARY- PT ALERT AND ORIENTED INDEPEDENT IN THE ROOM, NO S&S OF DISTRESS NOTED AT THE TIME OF BEDSIDE REPORT. PT MEDICATED ONCE FOR ANXIETY WITH 1MG PO ATIVAN. IT SEEMED TO HELP HER ANXIETY. PT DID C/O HEARTBURN AT THE TIME OF BEDSIDE REPORT. NIGHT RN AWARE.
[2024-04-02] MEDS ORDERED: Calcium Carbonate 500 MG Tab Chew PO PRN (20:20)
[2024-04-03 04:59] VITALS: BP 108/79
--- NOTE | 2024-04-03 05:52 | NUR ---
SHIFT SUMMARY 18 YR F ADMITTED ON 03/31/24. FULL CODE. NO ACUTE CHANGES THIS SHIFT. PT C/O HEARTBURN AT BEGINNING OF SHIFT AND ORDER FOR TUMS WAS PLACED. NO OTHER C/O PAIN OR DISCOMFORT THIS SHIFT. PT IS INDEPENDANT IN THE ROOM AND IS PLEASANT AND COOPERATIVE WITH CARE. UPDATE GIVEN TO [facility] THIS SHIFT, WHO STATED THAT THEY STILL DO NOT HAVE A BED AVAILABLE. PT MEDICATED ONCE FOR NAUSEA AT BEGINNING OF SHIFT.
[2024-04-03 07:28] VITALS: BP 117/80
[2024-04-03 08:00] LABS: BASOPHILS ABSOLUTE AUTO 0.03 K/mm3 (0.00-0.23); BASOPHILS PERCENT AUTO 0 % (0-2); EOSINOPHILS PERCENT AUTO 0 % (0-6); Hemoglobin 9.7 g/dL (11.5-16.0); IMMATURE GRAN ABSOLUTE AUTO 0.08 K/mm3 (0.00-0.10); IMMATURE GRAN PERCENT AUTO 1 % (0-1); LYMPHOCYTES ABSOLUTE AUTO 2.89 K/mm3 (0.84-5.20); LYMPHOCYTES PERCENT AUTO 22 % (21-46); MONOCYTES ABSOLUTE AUTO 1.15 K/mm3 (0.16-1.47); MONOCYTES PERCENT AUTO 9 % (4-13); Mean Corpuscular HGB 27.5 pg (26.0-34.0); Mean Corpuscular HGB Conc 32.3 g/dL (31.5-36.5); Mean Corpuscular Volume 85 fL (80-100); Mean Platelet Volume 8.6 fL (9.1-12.4); NEUTROPHILS ABSOLUTE AUTO 8.79 K/mm3 (1.96-9.15); NEUTROPHILS PERCENT AUTO 68 % (41-73); Platelet Count 373 K/mm3 (150-400); RDW Standard Deviation 45.5 fL (35.1-46.3); Red Blood Cell Count 3.53 M/mm3 (3.80-5.20); White Blood Cell Count 12.94 K/mm3 (4.00-11.30)
[2024-04-03 08:09] LABS: Albumin, Blood 2.2 g/dL (3.4-5.0); Albumin/Globulin Ratio 0.4 (0.8-1.8); Bilirubin, Total 0.1 mg/dL (0.1-1.0); Calcium, Blood 9.1 mg/dL (8.5-10.1); Creatinine, Blood 0.54 mg/dL (0.40-1.00); Globulin, Blood 5.3 g/dL (2.2-4.0); Potassium, Blood 3.9 mmol/L (3.5-5.5); Total Protein, Blood 7.5 g/dL (6.4-8.2)
[2024-04-03] MEDS ORDERED: Ketorolac Tromethamine 15mg Vial IV PRN (09:40)
[2024-04-03 16:22] VITALS: BP 110/70
--- NOTE | 2024-04-03 17:53 | NUR ---
SHIFT SUMMARY PT IS A/OX4, INDEPENDENT IN THE ROOM. NO ACUTE EVENTS THROUGHOUT THIS SHIFT. PT MEDICATED X1 WITH TORADOL FOR PAIN IN ABDOMEN AND SUTURE SITE. LR RUNNING AT 100 ML/HR. ON RA. TELE RUNNING SINUS ARRYTHMIA/SINUS RYTHYM. PT VISITED BY MOTHER AND BOYFRIEND THIS SHIFT.
[2024-04-03 19:33] VITALS: BP 107/69
--- NOTE | 2024-04-04 03:17 | NUR ---
SHIFT SUMMARY 18 YR F ADMITTED ON 03/31/24. FULL CODE. NO ACUTE CHANGES THIS SHIFT. PT C/O OF ABDOMINAL PAIN AND MEDICATED PER EMAR. SHE KEEPS HERSELF BUSY WITH KNITTING. NO C/O NAUSEA OR DIARRHEA THIS SHIFT. NO OBVIOUS SIGNS OF ANXIETY. PT IS A&O X 4 AND IS INDEPENDANT IN THE ROOM. BED IN LOW POSITION AND CALL LIGHT IN REACH.
[2024-04-04 04:14] VITALS: BP 112/68
[2024-04-04 07:45] VITALS: BP 112/76
[2024-04-04 12:18] LABS: BASOPHILS ABSOLUTE AUTO 0.02 K/mm3 (0.00-0.23); BASOPHILS PERCENT AUTO 0 % (0-2); EOSINOPHILS ABSOLUTE AUTO 0.02 K/mm3 (0.00-0.68); EOSINOPHILS PERCENT AUTO 0 % (0-6); Hematocrit 34.7 % (33.0-51.0); Hemoglobin 11.1 g/dL (11.5-16.0); IMMATURE GRAN ABSOLUTE AUTO 0.09 K/mm3 (0.00-0.10); IMMATURE GRAN PERCENT AUTO 1 % (0-1); LYMPHOCYTES ABSOLUTE AUTO 2.46 K/mm3 (0.84-5.20); LYMPHOCYTES PERCENT AUTO 20 % (21-46); MONOCYTES ABSOLUTE AUTO 1.27 K/mm3 (0.16-1.47); MONOCYTES PERCENT AUTO 10 % (4-13); Mean Corpuscular HGB 27.1 pg (26.0-34.0); Mean Corpuscular Volume 85 fL (80-100); Mean Platelet Volume 8.8 fL (9.1-12.4); NEUTROPHILS PERCENT AUTO 69 % (41-73); Platelet Count 498 K/mm3 (150-400); RDW Coefficient Variation 14.7 % (11.7-14.2); RDW Standard Deviation 45.2 fL (35.1-46.3); Red Blood Cell Count 4.09 M/mm3 (3.80-5.20); White Blood Cell Count 12.46 K/mm3 (4.00-11.30)
[2024-04-04 12:24] LABS: Albumin, Blood 2.6 g/dL (3.4-5.0); Albumin/Globulin Ratio 0.4 (0.8-1.8); Bilirubin, Total 0.2 mg/dL (0.1-1.0); Bun/Creatinine Ratio 16.5 (12.0-20.0); Calcium, Blood 9.1 mg/dL (8.5-10.1); Creatinine, Blood 0.61 mg/dL (0.40-1.00); Globulin, Blood 5.8 g/dL (2.2-4.0); Potassium, Blood 4.1 mmol/L (3.5-5.5); Total Protein, Blood 8.4 g/dL (6.4-8.2)
[2024-04-04 14:21] VITALS: BP 118/76
[2024-04-04] MEDS ORDERED: Lactated Ringer's 500 ML IV SCH (14:50)
[2024-04-04] MEDS ORDERED: Lactated Ringer's 1,000 ML IV SCH (15:00)
[2024-04-04 15:25] LABS: Hemoglobin 10.3 g/dL (11.5-16.0)
--- NOTE | 2024-04-04 18:34 | NUR ---
SHIFT SUMMARY PT IS A/OX4, INDEPENDENT IN THE ROOM. PT EXPERIENCING LOOSE, BLOODY STOOLS THIS SHIFT. PHYSICAN NOTIFIED. PT LATER EXPRESSED THAT SHE FELT DIZZY, PHYSICAN NOTIFIED AGAIN AND 1000ML BOLUS OF LR GIVEN. VITAL SIGNS STABLE. LR RUNNING AT 100 ML/HR. ON TELE RUNNING NORMAL SINUS RYTHYM. PT VISITED BY HER MOTHER AND BOYFRIEND THIS SHIFT.
[2024-04-04 19:44] VITALS: BP 98/65
[2024-04-04 21:01] LABS: Hematocrit 31.2 % (33.0-51.0); Hemoglobin 10.3 g/dL (11.5-16.0)
[2024-04-05 00:17] VITALS: BP 98/65
--- NOTE | 2024-04-05 05:51 | NUR ---
SHIFT SUMMARY PT PICKED UP @ 0545 BY EMS FOR TRANSPORT TO [facility]. REPORT GIVEN TO [facility] RN AND UPDATE OF PT TOA GIVEN WELL. PT REQUESTED PO ATIVAN FOR ANXIETY JUST BEFORE LEAVING. PT DID WELL OVER NIGHT W/ NO EPISODES OF BLOODY STOOLE. MEDICATED FOR NAUSEA AT BEGINNING OF SHIFT.
[2024-04-05 06:50] LABS: BASOPHILS ABSOLUTE AUTO 0.03 K/mm3 (0.00-0.23); BASOPHILS PERCENT AUTO 0 % (0-2); EOSINOPHILS ABSOLUTE AUTO 0.03 K/mm3 (0.00-0.68); EOSINOPHILS PERCENT AUTO 0 % (0-6); Hematocrit 33.2 % (33.0-51.0); Hemoglobin 10.6 g/dL (11.5-16.0); IMMATURE GRAN ABSOLUTE AUTO 0.08 K/mm3 (0.00-0.10); IMMATURE GRAN PERCENT AUTO 1 % (0-1); LYMPHOCYTES ABSOLUTE AUTO 2.33 K/mm3 (0.84-5.20); LYMPHOCYTES PERCENT AUTO 18 % (21-46); MONOCYTES ABSOLUTE AUTO 1.23 K/mm3 (0.16-1.47); MONOCYTES PERCENT AUTO 10 % (4-13); Mean Corpuscular HGB 27.2 pg (26.0-34.0); Mean Corpuscular HGB Conc 31.9 g/dL (31.5-36.5); Mean Corpuscular Volume 85 fL (80-100); NEUTROPHILS ABSOLUTE AUTO 9.07 K/mm3 (1.96-9.15); NEUTROPHILS PERCENT AUTO 71 % (41-73); Platelet Count 449 K/mm3 (150-400); RDW Coefficient Variation 15.1 % (11.7-14.2); RDW Standard Deviation 45.8 fL (35.1-46.3); White Blood Cell Count 12.77 K/mm3 (4.00-11.30)
[2024-04-05 07:26] LABS: Alanine Aminotransfer (ALT/SGP 28 U/L (12-78); Albumin, Blood 2.2 g/dL (3.4-5.0); Albumin/Globulin Ratio 0.4 (0.8-1.8); Alk Phos 63 U/L (45-116); Anion Gap 11 mmol/L (3-11); Aspartate Aminotrans (AST/SGOT 23 U/L (12-37); Bilirubin, Total <0.1 mg/dL (0.1-1.0); Blood Urea Nitrogen 11 mg/dL (8-21); Bun/Creatinine Ratio 20.3 (12.0-20.0); CO2, Blood 26 mmol/L (21-32); Calcium, Blood 9.1 mg/dL (8.5-10.1); Chloride, Blood 107 mmol/L (98-108); Creatinine, Blood 0.54 mg/dL (0.40-1.00); Globulin, Blood 5.2 g/dL (2.2-4.0); Glomerular Filtration Rate 136 (60-); Glucose, Blood 102 mg/dL (70-99); Potassium, Blood 4.3 mmol/L (3.5-5.5); Sodium, Blood 140 mmol/L (136-145); Total Protein, Blood 7.4 g/dL (6.4-8.2)
== END 2024-04-05 05:47 | disposition short-term general hospital (02) | DRG 872 ==
LOC: ER 14:26 → MEDS 19:55
PROVIDERS: Emergency Medicine; Family Medicine; Hospitalist; Nurse Practitioner Acute Care; ADMIT Student in an Organized Health Care Education/Training Program
DX: A41.9 Sepsis, unspecified organism (principal); L03.314 Cellulitis of groin; K50.80 Crohn's disease of both small and large intestine without complications; F41.9 Anxiety disorder, unspecified; D50.0 Iron deficiency anemia secondary to blood loss (chronic); R55 Syncope and collapse; F32.A Depression, unspecified; E55.9 Vitamin D deficiency, unspecified; Z79.899 Other long term (current) drug therapy
CPT/HCPCS: 36415; 71045; 74177; 80053; 81001; 83605; 83735; 84484; 84702; 85014; 85018; 85025; 85651; 86140; 87040; 87086; 87507; 93005; 93010; 94762; 96361; 96374-59; 96375; 99285-25; A9270; J0744; J1650; J1885; J2060; J2270; J2405; J2543; J2919; J7030; J7050; J7120; Q9967

== ENCOUNTER → 2024-04-16 | Outpatient (CLI) | payer OTHER ==
[~2024-04-16] MED LIST changes: +OMEP20ER PO
[2024-04-16 18:36] LABS: BASOPHILS ABSOLUTE AUTO 0.09 K/mm3 (0.00-0.23); BASOPHILS PERCENT AUTO 1 % (0-2); EOSINOPHILS ABSOLUTE AUTO 0.17 K/mm3 (0.00-0.68); EOSINOPHILS PERCENT AUTO 1 % (0-6); Hematocrit 36.6 % (33.0-51.0); Hemoglobin 11.5 g/dL (11.5-16.0); IMMATURE GRAN ABSOLUTE AUTO 0.14 K/mm3 (0.00-0.10); IMMATURE GRAN PERCENT AUTO 1 % (0-1); LYMPHOCYTES ABSOLUTE AUTO 2.97 K/mm3 (0.84-5.20); LYMPHOCYTES PERCENT AUTO 19 % (21-46); MONOCYTES ABSOLUTE AUTO 1.17 K/mm3 (0.16-1.47); MONOCYTES PERCENT AUTO 7 % (4-13); Mean Corpuscular HGB 27.6 pg (26.0-34.0); Mean Corpuscular HGB Conc 31.4 g/dL (31.5-36.5); Mean Corpuscular Volume 88 fL (80-100); Mean Platelet Volume 8.3 fL (9.1-12.4); NEUTROPHILS ABSOLUTE AUTO 11.19 K/mm3 (1.96-9.15); NEUTROPHILS PERCENT AUTO 71 % (41-73); Platelet Count 501 K/mm3 (150-400); RDW Coefficient Variation 16.7 % (11.7-14.2); RDW Standard Deviation 52.1 fL (35.1-46.3); Red Blood Cell Count 4.16 M/mm3 (3.80-5.20); White Blood Cell Count 15.73 K/mm3 (4.00-11.30)
[2024-04-16 19:21] LABS: Percent Saturation 5.8 % (15.0-50.0)
[2024-04-16 19:27] LABS: Thyroid Stimulating Hormone 1.07 uIU/mL (0.360-4.800)
== END ==
LOC: LAB SHORT 17:18 → LAB 17:18
PROVIDERS: Hospitalist
DX: D50.0 Iron deficiency anemia secondary to blood loss (chronic) (principal); R00.0 Tachycardia, unspecified
CPT/HCPCS: 82728; 83540; 83550; 84443; 85025

== ENCOUNTER 2024-04-22 02:06 | Day surgery (SDC) | payer OTHER ==
[~2024-04-22 02:06] MED LIST changes: -OMEP20ER PO; +Sod Ferric Gluc Complx/Sucrose 125 MG in NS 100 ML IV SCH
[2024-04-22 09:47] VITALS: BP 118/86
[2024-04-22] MEDS ORDERED: OMEP20ER PO (10:02)
== END 2024-04-22 11:00 | disposition home or self-care (01) ==
LOC: ATC 02:06
DX: D50.0 Iron deficiency anemia secondary to blood loss (chronic) (principal); K50.013 Crohn's disease of small intestine with fistula; Z79.899 Other long term (current) drug therapy; Z88.3 Allergy status to other anti-infective agents
CPT/HCPCS: 96365; J2916

== ENCOUNTER → 2024-05-27 | Outpatient (CLI) | payer OTHER ==
[~2024-05-27] MED LIST changes: +OMEP20ER PO; -Sod Ferric Gluc Complx/Sucrose 125 MG in NS 100 ML IV SCH
[2024-05-27 13:33] LABS: BASOPHILS ABSOLUTE AUTO 0.07 K/mm3 (0.00-0.23); BASOPHILS PERCENT AUTO 1 % (0-2); EOSINOPHILS ABSOLUTE AUTO 0.18 K/mm3 (0.00-0.68); EOSINOPHILS PERCENT AUTO 2 % (0-6); Hematocrit 34.6 % (33.0-51.0); Hemoglobin 11.6 g/dL (11.5-16.0); IMMATURE GRAN ABSOLUTE AUTO 0.02 K/mm3 (0.00-0.10); IMMATURE GRAN PERCENT AUTO 0 % (0-1); LYMPHOCYTES ABSOLUTE AUTO 3.83 K/mm3 (0.84-5.20); LYMPHOCYTES PERCENT AUTO 35 % (21-46); MONOCYTES PERCENT AUTO 8 % (4-13); Mean Corpuscular HGB 28.5 pg (26.0-34.0); Mean Corpuscular HGB Conc 33.5 g/dL (31.5-36.5); Mean Corpuscular Volume 85 fL (80-100); Mean Platelet Volume 9.3 fL (9.1-12.4); NEUTROPHILS ABSOLUTE AUTO 6.08 K/mm3 (1.96-9.15); NEUTROPHILS PERCENT AUTO 55 % (41-73); Platelet Count 423 K/mm3 (150-400); RDW Coefficient Variation 13.9 % (11.7-14.2); RDW Standard Deviation 43.2 fL (35.1-46.3); Red Blood Cell Count 4.07 M/mm3 (3.80-5.20); White Blood Cell Count 11.08 K/mm3 (4.00-11.30)
[2024-05-27 17:51] LABS: C-REACTIVE PROTEIN, EXT RANGE 3.7 mg/dL (0.000-0.300)
[2024-05-27 17:54] LABS: Albumin, Blood 2.7 g/dL (3.4-5.0); Albumin/Globulin Ratio 0.5 (0.8-1.8); Bilirubin, Total 0.1 mg/dL (0.1-1.0); Bun/Creatinine Ratio 19.6 (12.0-20.0); Calcium, Blood 8.7 mg/dL (8.5-10.1); Creatinine, Blood 0.61 mg/dL (0.40-1.00); Globulin, Blood 5.1 g/dL (2.2-4.0); Potassium, Blood 4.1 mmol/L (3.5-5.5); Total Protein, Blood 7.8 g/dL (6.4-8.2)
== END ==
LOC: LAB 11:22 → LAB SHORT 11:22
PROVIDERS: Pediatrics Pediatric Gastroenterology
DX: K50.80 Crohn's disease of both small and large intestine without complications (principal)
CPT/HCPCS: 80053; 85025; 85651; 86140

== ENCOUNTER → 2024-12-12 | Outpatient (CLI) | payer OTHER ==
[2024-12-12 15:38] LABS: BASOPHILS ABSOLUTE AUTO 0.08 K/mm3 (0.00-0.23); BASOPHILS PERCENT AUTO 1 % (0-2); EOSINOPHILS ABSOLUTE AUTO 0.13 K/mm3 (0.00-0.68); EOSINOPHILS PERCENT AUTO 1 % (0-6); Hematocrit 32.0 % (33.0-51.0); Hemoglobin 10.4 g/dL (11.5-16.0); IMMATURE GRAN ABSOLUTE AUTO 0.03 K/mm3 (0.00-0.10); IMMATURE GRAN PERCENT AUTO 0 % (0-1); LYMPHOCYTES ABSOLUTE AUTO 2.94 K/mm3 (0.84-5.20); LYMPHOCYTES PERCENT AUTO 25 % (21-46); MONOCYTES ABSOLUTE AUTO 1.21 K/mm3 (0.16-1.47); MONOCYTES PERCENT AUTO 10 % (4-13); Mean Corpuscular HGB Conc 32.5 g/dL (31.5-36.5); Mean Corpuscular Volume 83 fL (80-100); NEUTROPHILS ABSOLUTE AUTO 7.41 K/mm3 (1.96-9.15); NEUTROPHILS PERCENT AUTO 63 % (41-73); NRBC ABSOLUTE 0.00 K/mm3 (0.00-0.02); NRBC Auto 0.0 /100 WBC (0.0-0.2); Platelet Count 392 K/mm3 (150-400); RDW Coefficient Variation 13.2 % (11.7-14.2); RDW Standard Deviation 39.8 fL (35.1-46.3)
[2024-12-12 15:53] LABS: Alanine Aminotransfer (ALT/SGP 19.0 U/L (12-78); Albumin, Blood 3.0 g/dL (3.4-5.0); Albumin/Globulin Ratio 0.6 (0.8-1.8); Anion Gap 12.0 mmol/L (3-11); Aspartate Aminotrans (AST/SGOT 19.0 U/L (12-37); Bilirubin, Total 0.2 mg/dL (0.1-1.0); Blood Urea Nitrogen 13.0 mg/dL (8-24); CO2, Blood 27.0 mmol/L (21-32); Calcium, Blood 8.9 mg/dL (8.5-10.1); Chloride, Blood 101.0 mmol/L (98-108); Creatinine, Blood 0.99 mg/dL (0.40-1.00); Globulin, Blood 5.4 g/dL (2.2-4.0); Glucose, Blood 82.0 mg/dL (70-99); Potassium, Blood 3.8 mmol/L (3.5-5.5); Sodium, Blood 136.0 mmol/L (136-145); Total Protein, Blood 8.4 g/dL (6.4-8.2)
== END ==
LOC: LAB SHORT 15:33 → LAB 15:33
PROVIDERS: Chiropractor
DX: R10.84 Generalized abdominal pain (principal); R31.29 Other microscopic hematuria
CPT/HCPCS: 80053; 83690; 85025; 87086

== ENCOUNTER → 2025-01-14 | Outpatient (CLI) | payer OTHER ==
[~2025-01-14] MED LIST changes: +Calcium Carbon500 MG PO; +HYDMOR2 PO; +Prednisone10 MG PO
[2025-01-14 15:59] LABS: BASOPHILS ABSOLUTE AUTO 0.05 K/mm3 (0.00-0.23); BASOPHILS PERCENT AUTO 0 % (0-2); EOSINOPHILS ABSOLUTE AUTO 0.31 K/mm3 (0.00-0.68); EOSINOPHILS PERCENT AUTO 2 % (0-6); Hematocrit 33.6 % (33.0-51.0); Hemoglobin 10.9 g/dL (11.5-16.0); IMMATURE GRAN ABSOLUTE AUTO 0.18 K/mm3 (0.00-0.10); IMMATURE GRAN PERCENT AUTO 1 % (0-1); LYMPHOCYTES ABSOLUTE AUTO 4.03 K/mm3 (0.84-5.20); LYMPHOCYTES PERCENT AUTO 30 % (21-46); MONOCYTES ABSOLUTE AUTO 1.92 K/mm3 (0.16-1.47); MONOCYTES PERCENT AUTO 14 % (4-13); Mean Corpuscular HGB Conc 32.4 g/dL (31.5-36.5); Mean Corpuscular Volume 84 fL (80-100); NEUTROPHILS ABSOLUTE AUTO 7.09 K/mm3 (1.96-9.15); NEUTROPHILS PERCENT AUTO 52 % (41-73); NRBC ABSOLUTE 0.00 K/mm3 (0.00-0.02); NRBC Auto 0.0 /100 WBC (0.0-0.2); Platelet Count 497 K/mm3 (150-400); RDW Coefficient Variation 13.7 % (11.7-14.2); RDW Standard Deviation 41.2 fL (35.1-46.3)
[2025-01-14 16:55] LABS: Anion Gap 7.0 mmol/L (3-11); Blood Urea Nitrogen 17.0 mg/dL (8-24); CO2, Blood 30.0 mmol/L (21-32); Calcium, Blood 9.0 mg/dL (8.5-10.1); Chloride, Blood 101.0 mmol/L (98-108); Creatinine, Blood 0.73 mg/dL (0.40-1.00); Glucose, Blood 86.0 mg/dL (70-99); Potassium, Blood 3.9 mmol/L (3.5-5.5); Sodium, Blood 134.0 mmol/L (136-145)
[2025-01-16 05:02] LABS: APTIMA MEDIA TYPE Urine; C. TRACHOMATIS BY TMA Negative (Negative); N. GONORRHOEAE BY TMA Negative (Negative)
[2025-01-16 11:41] LABS: HSV 1 GLYCOPROTEIN G AB, IGG 8.38 IV (<=0.89); HSV 2 GLYCOPROTEIN G AB, IGG 0.95 IV (<=0.89)
== END ==
LOC: LAB SHORT 10:25 → LAB 10:25
PROVIDERS: Hospitalist
DX: Z11.3 Encounter for screening for infections with a predominantly sexual mode of transmission (principal); D50.0 Iron deficiency anemia secondary to blood loss (chronic); E87.1 Hypo-osmolality and hyponatremia
CPT/HCPCS: 80048; 85025; 86695; 86696; 87491; 87591

== ENCOUNTER 2025-02-01 19:02 | Emergency (ER) | payer OTHER ==
[~2025-02-01] VITALS: Ht 160 cm; Wt 67.1 kg
[2025-02-01] MEDS ORDERED: Ondansetron HCl 2 MG / ML 2ML Vial IV PRN (19:30)
[2025-02-01 20:30] LABS: BASOPHILS ABSOLUTE AUTO 0.06 K/mm3 (0.00-0.23); BASOPHILS PERCENT AUTO 1 % (0-2); EOSINOPHILS ABSOLUTE AUTO 0.16 K/mm3 (0.00-0.68); EOSINOPHILS PERCENT AUTO 2 % (0-6); Hematocrit 33.3 % (33.0-51.0); Hemoglobin 10.8 g/dL (11.5-16.0); IMMATURE GRAN ABSOLUTE AUTO 0.03 K/mm3 (0.00-0.10); IMMATURE GRAN PERCENT AUTO 0 % (0-1); LYMPHOCYTES ABSOLUTE AUTO 1.84 K/mm3 (0.84-5.20); LYMPHOCYTES PERCENT AUTO 20 % (21-46); MONOCYTES ABSOLUTE AUTO 1.28 K/mm3 (0.16-1.47); MONOCYTES PERCENT AUTO 14 % (4-13); Mean Corpuscular HGB Conc 32.4 g/dL (31.5-36.5); Mean Corpuscular Volume 80 fL (80-100); NEUTROPHILS ABSOLUTE AUTO 5.96 K/mm3 (1.96-9.15); NEUTROPHILS PERCENT AUTO 64 % (41-73); NRBC ABSOLUTE 0.00 K/mm3 (0.00-0.02); NRBC Auto 0.0 /100 WBC (0.0-0.2); Platelet Count 409 K/mm3 (150-400); RDW Coefficient Variation 14.0 % (11.7-14.2); RDW Standard Deviation 41.0 fL (35.1-46.3)
[2025-02-01 20:48] LABS: Alanine Aminotransfer (ALT/SGP 26.0 U/L (12-78); Albumin, Blood 2.5 g/dL (3.4-5.0); Albumin/Globulin Ratio 0.5 (0.8-1.8); Anion Gap 10.0 mmol/L (3-11); Aspartate Aminotrans (AST/SGOT 22.0 U/L (12-37); Bilirubin, Total 0.3 mg/dL (0.1-1.0); Blood Urea Nitrogen 8.0 mg/dL (8-24); CO2, Blood 23.0 mmol/L (21-32); Calcium, Blood 8.6 mg/dL (8.5-10.1); Chloride, Blood 104.0 mmol/L (98-108); Creatinine, Blood 0.71 mg/dL (0.40-1.00); Globulin, Blood 5.3 g/dL (2.2-4.0); Glucose, Blood 95.0 mg/dL (70-99); Potassium, Blood 4.1 mmol/L (3.5-5.5); Sodium, Blood 133.0 mmol/L (136-145); Total Protein, Blood 7.8 g/dL (6.4-8.2)
[2025-02-01 20:50] LABS: Source, Urine Clean Catch
[2025-02-01 20:53] LABS: Bilirubin, Urine Neg (Neg); Color, Urine Yellow (P-Yellow); Glucose Qualitative, Urine Neg (Neg); Ketones, Urine Neg (Neg); Leukocyte Esterase, Urine 1+ (Neg); Protein, Urine 3+ (Neg); Specific Gravity, Urine 1.015 (1.003-1.022); Urobilinogen, Urine 1+ (Normal)
[2025-02-01 21:07] LABS: Red Blood Cells, Urine TNTC /hpf (0-2)
[2025-02-01] MEDS ORDERED: FentaNYL Citrate 50 MCG/ML 2 ML Injection IV ONE (23:35)
[2025-02-01] MEDS ORDERED: NS 1,000 ML IV SCH (23:45)
[2025-02-02 01:00] VITALS: BP 101/69
[2025-02-02] MEDS ORDERED: RX Prepack 6 Tabs Oxycodone 5mg UD ONE (01:10)
[2025-02-02] MEDS ORDERED: RX Prepack 2 Tabs Ondansetron ODT 4MG UD ONE (01:10)
[2025-02-02] MEDS ORDERED: CEFP200 PO (01:15)
== END 2025-02-02 01:27 | disposition home or self-care (01) ==
LOC: ER 19:02
PROVIDERS: Student in an Organized Health Care Education/Training Program
DX: K50.10 Crohn's disease of large intestine without complications (principal); N39.0 Urinary tract infection, site not specified; D64.9 Anemia, unspecified
CPT/HCPCS: 74177; 80053; 81001; 81025; 83690; 85025; 85651; 86140; 87086; 93005; 93010; 99284-25; A9270; J2405; J3010; J7030; Q9967

== ENCOUNTER 2025-02-12 07:17 | Inpatient (IN) | payer OTHER ==
[~2025-02-12] VITALS: Ht 167.6 cm; Wt 65.5 kg
[~2025-02-12 07:17] MED LIST changes: +CEFP200 PO
[2025-02-12] MEDS ORDERED: NS 500 ML IV SCH (08:40)
[2025-02-12] MEDS ORDERED: Ketorolac Tromethamine 30mg Vial IV ONE (08:40)
[2025-02-12] MEDS ORDERED: HYDROmorphone HCl/Pf 1MG SYR IV ONE (08:40)
[2025-02-12 08:43] LABS: BASOPHILS ABSOLUTE AUTO 0.08 K/mm3 (0.00-0.23); BASOPHILS PERCENT AUTO 1 % (0-2); EOSINOPHILS ABSOLUTE AUTO 0.20 K/mm3 (0.00-0.68); EOSINOPHILS PERCENT AUTO 2 % (0-6); Hematocrit 37.7 % (33.0-51.0); Hemoglobin 12.1 g/dL (11.5-16.0); IMMATURE GRAN ABSOLUTE AUTO 0.06 K/mm3 (0.00-0.10); IMMATURE GRAN PERCENT AUTO 1 % (0-1); LYMPHOCYTES ABSOLUTE AUTO 3.06 K/mm3 (0.84-5.20); LYMPHOCYTES PERCENT AUTO 28 % (21-46); MONOCYTES ABSOLUTE AUTO 1.45 K/mm3 (0.16-1.47); MONOCYTES PERCENT AUTO 13 % (4-13); Mean Corpuscular HGB Conc 32.1 g/dL (31.5-36.5); Mean Corpuscular Volume 82 fL (80-100); NEUTROPHILS ABSOLUTE AUTO 6.03 K/mm3 (1.96-9.15); NEUTROPHILS PERCENT AUTO 56 % (41-73); NRBC ABSOLUTE 0.00 K/mm3 (0.00-0.02); NRBC Auto 0.0 /100 WBC (0.0-0.2); Platelet Count 463 K/mm3 (150-400); RDW Coefficient Variation 13.9 % (11.7-14.2); RDW Standard Deviation 40.8 fL (35.1-46.3)
[2025-02-12] MEDS ORDERED: Ondansetron HCl 2 MG / ML 2ML Vial IV ONE (08:50)
[2025-02-12 08:57] LABS: Alanine Aminotransfer (ALT/SGP 43.0 U/L (12-78); Albumin, Blood 2.8 g/dL (3.4-5.0); Albumin/Globulin Ratio 0.5 (0.8-1.8); Anion Gap 6.0 mmol/L (3-11); Aspartate Aminotrans (AST/SGOT 37.0 U/L (12-37); Bilirubin, Total 0.2 mg/dL (0.1-1.0); Blood Urea Nitrogen 15.0 mg/dL (8-24); CO2, Blood 29.0 mmol/L (21-32); Calcium, Blood 9.0 mg/dL (8.5-10.1); Chloride, Blood 103.0 mmol/L (98-108); Creatinine, Blood 0.89 mg/dL (0.40-1.00); Globulin, Blood 5.4 g/dL (2.2-4.0); Glucose, Blood 84.0 mg/dL (70-99); Potassium, Blood 3.9 mmol/L (3.5-5.5); Sodium, Blood 134.0 mmol/L (136-145); Total Protein, Blood 8.2 g/dL (6.4-8.2)
[2025-02-12] MEDS ORDERED: FLU VACC TS2025-26(6MOS UP)/PF 45 MCG/0.5 ML SYRINGE IM ONE (09:20)
[2025-02-12 11:59] VITALS: BP 116/70
[2025-02-12] MEDS ORDERED: HYDROmorphone HCl/Pf 1MG SYR IV PRN (13:00)
[2025-02-12] MEDS ORDERED: Ondansetron HCl 2 MG / ML 2ML Vial IV PRN (13:00)
[2025-02-12] MEDS ORDERED: Ketorolac Tromethamine 15mg Vial IV PRN (13:05)
--- NOTE | 2025-02-12 17:59 | NUR ---
Patient arrived to room 328 via gurney from ER at 1150. Patient denied pain, N/V/D, SOB or CP upon arrival. Patient given lunch per request. Patient resting comfortably after eating. Complaint of pain around 4ish and medicated per EMAR with good relief. Patient remains independent in room for ambulation; utilizing call light appropriately; call light within reach and bed in lowest position. No acute changes this shift. Will continue to monitor until next shift nurse arrives and report is given.
[2025-02-12 19:02] LABS: Source, Urine Clean Catch
[2025-02-12 19:19] LABS: Bilirubin, Urine Neg (Neg); Glucose Qualitative, Urine Neg (Neg); Ketones, Urine Neg (Neg); Leukocyte Esterase, Urine Neg (Neg); Protein, Urine 1+ (Neg); Specific Gravity, Urine 1.010 (1.003-1.022); Urobilinogen, Urine NORM (Normal)
[2025-02-12 19:25] LABS: Color, Urine Pale Yellow (P-Yellow)
[2025-02-12 19:26] LABS: Red Blood Cells, Urine 25-50 /hpf (0-2); White Blood Cells, Urine 0-2 /hpf (0-5)
[2025-02-12 19:55] VITALS: BP 110/75
[2025-02-13 04:22] VITALS: BP 90/49
--- NOTE | 2025-02-13 04:36 | NUR ---
SHIFT SUMMARY; PATIENT SLEPT IN SHORT INTERVALS, ABD PAIN STRONG, NO ACTUAL BMS OF THIS ENTRY. ZOFRAN FORMILD NAUSEA, NO EMESIS. MENSES NOTED.
[2025-02-13 06:01] LABS: BASOPHILS ABSOLUTE AUTO 0.09 K/mm3 (0.00-0.23); BASOPHILS PERCENT AUTO 0 % (0-2); EOSINOPHILS ABSOLUTE AUTO 0.01 K/mm3 (0.00-0.68); EOSINOPHILS PERCENT AUTO 0 % (0-6); Hematocrit 34.4 % (33.0-51.0); Hemoglobin 11.0 g/dL (11.5-16.0); IMMATURE GRAN ABSOLUTE AUTO 0.26 K/mm3 (0.00-0.10); IMMATURE GRAN PERCENT AUTO 1 % (0-1); LYMPHOCYTES ABSOLUTE AUTO 2.32 K/mm3 (0.84-5.20); LYMPHOCYTES PERCENT AUTO 7 % (21-46); MONOCYTES ABSOLUTE AUTO 2.71 K/mm3 (0.16-1.47); MONOCYTES PERCENT AUTO 8 % (4-13); Mean Corpuscular HGB Conc 32.0 g/dL (31.5-36.5); Mean Corpuscular Volume 81 fL (80-100); NEUTROPHILS ABSOLUTE AUTO 26.92 K/mm3 (1.96-9.15); NEUTROPHILS PERCENT AUTO 83 % (41-73); NRBC ABSOLUTE 0.00 K/mm3 (0.00-0.02); NRBC Auto 0.0 /100 WBC (0.0-0.2); Platelet Count 464 K/mm3 (150-400); RDW Coefficient Variation 13.6 % (11.7-14.2); RDW Standard Deviation 39.8 fL (35.1-46.3)
[2025-02-13 06:45] LABS: Alanine Aminotransfer (ALT/SGP 47.0 U/L (12-78); Albumin, Blood 2.5 g/dL (3.4-5.0); Albumin/Globulin Ratio 0.5 (0.8-1.8); Anion Gap 6.0 mmol/L (3-11); Aspartate Aminotrans (AST/SGOT 26.0 U/L (12-37); Bilirubin, Total 0.3 mg/dL (0.1-1.0); Blood Urea Nitrogen 17.0 mg/dL (8-24); CO2, Blood 27.0 mmol/L (21-32); Calcium, Blood 9.0 mg/dL (8.5-10.1); Chloride, Blood 102.0 mmol/L (98-108); Creatinine, Blood 0.63 mg/dL (0.40-1.00); Globulin, Blood 4.9 g/dL (2.2-4.0); Glucose, Blood 134.0 mg/dL (70-99); Potassium, Blood 4.0 mmol/L (3.5-5.5); Sodium, Blood 131.0 mmol/L (136-145); Total Protein, Blood 7.4 g/dL (6.4-8.2)
[2025-02-13 07:16] VITALS: BP 106/68
[2025-02-13] MEDS ORDERED: Enoxaparin 40 MG/0.4 ML SYR SC SCH (09:00)
[2025-02-13] MEDS ORDERED: HYDROmorphone HCl/Pf 1MG SYR IV PRN ×2 (11:35)
[2025-02-13] MEDS ORDERED: FentaNYL Citrate 50 MCG/ML 2 ML Injection IV PRN (11:40)
[2025-02-13 12:55] LABS: IMMATURE RETIC FRACTION 10.4 % (2.3-16.0); RETIC HGB EQUIVALENT 29.3 pg (28.20-36.60); RETICULOCYTE ABSOLUTE 0.0717 M/mm3 (0.0200-0.1100); RETICULOCYTE COUNT PERCENT 1.68 % (0.50-2.50)
[2025-02-13 13:56] LABS: Campylobacter Sp Not Detected (NOT DETECT); E. Coli O157 Not Detected (NOT DETECT); Enteroaggregative E. coli-EAEC Not Detected (NOT DETECT); Enteropathogenic E. coli-EPEC Not Detected (NOT DETECT); Enterotoxigenic E. coli-ETEC Not Detected (NOT DETECT); Salmonella Sp Not Detected (NOT DETECT); Shiga Toxin-prod E. coli-STEC Not Detected (NOT DETECT); Shigella/Enteroin E. coli-EIEC Not Detected (NOT DETECT); Vibrio Sp Not Detected (NOT DETECT)
[2025-02-13 15:10] LABS: Ferritin, Serum 190.0 ng/mL (8-252); Total Iron Binding Capacity 238.0 ug/dL (250-450)
[2025-02-13 15:24] VITALS: BP 109/72
--- NOTE | 2025-02-13 18:16 | NUR ---
NO ACUTE CHANGES. [id number] HAVING ABDOMINAL PAIN AND NAUSEA. PT HAS HAD TWO LOOSE STOOLS. PT INDEPENDENT IN ROOM AND ABLE TO MAKE NEEDS KNOWN. WILL CONTINUE TO MONITOR.
[2025-02-13 20:24] VITALS: BP 123/82
[2025-02-13 21:58] LABS: Lactate Dehydrogenase (Ld),Bld 215.0 U/L (100-240)
[2025-02-14 03:31] VITALS: BP 101/66
--- NOTE | 2025-02-14 04:13 | NUR ---
SHIFT SUMMARY; DAY SHIFT CHARGE NURSE ABLE TO GET A POWERGLIDE IN. C/O HEARTBURN, CALLED HOSPITALIST FOR TUMS ORDER. IV LR/75ML/HR AFTER NEW IV STARTED. NO NAUSEA OR EMESIS TONIGHT, MEDICATED EVERY 2 HRS. FOR ABD PAIN. AWAITING NEXT BM, TO SEND TO LAB.
[2025-02-14 06:38] LABS: BASOPHILS ABSOLUTE AUTO 0.02 K/mm3 (0.00-0.23); BASOPHILS PERCENT AUTO 0 % (0-2); EOSINOPHILS ABSOLUTE AUTO 0.00 K/mm3 (0.00-0.68); EOSINOPHILS PERCENT AUTO 0 % (0-6); Hematocrit 29.4 % (33.0-51.0); Hemoglobin 9.3 g/dL (11.5-16.0); IMMATURE GRAN ABSOLUTE AUTO 0.09 K/mm3 (0.00-0.10); IMMATURE GRAN PERCENT AUTO 1 % (0-1); LYMPHOCYTES ABSOLUTE AUTO 1.75 K/mm3 (0.84-5.20); LYMPHOCYTES PERCENT AUTO 11 % (21-46); MONOCYTES ABSOLUTE AUTO 1.10 K/mm3 (0.16-1.47); MONOCYTES PERCENT AUTO 7 % (4-13); Mean Corpuscular HGB Conc 31.6 g/dL (31.5-36.5); Mean Corpuscular Volume 84 fL (80-100); NEUTROPHILS ABSOLUTE AUTO 13.72 K/mm3 (1.96-9.15); NEUTROPHILS PERCENT AUTO 82 % (41-73); NRBC ABSOLUTE 0.00 K/mm3 (0.00-0.02); NRBC Auto 0.0 /100 WBC (0.0-0.2); Platelet Count 388 K/mm3 (150-400); RDW Coefficient Variation 14.0 % (11.7-14.2); RDW Standard Deviation 42.8 fL (35.1-46.3)
[2025-02-14 07:01] LABS: Alanine Aminotransfer (ALT/SGP 32.0 U/L (12-78); Albumin, Blood 2.4 g/dL (3.4-5.0); Albumin/Globulin Ratio 0.6 (0.8-1.8); Anion Gap 5.0 mmol/L (3-11); Aspartate Aminotrans (AST/SGOT 12.0 U/L (12-37); Bilirubin, Total 0.1 mg/dL (0.1-1.0); Blood Urea Nitrogen 12.0 mg/dL (8-24); CO2, Blood 30.0 mmol/L (21-32); Calcium, Blood 8.8 mg/dL (8.5-10.1); Chloride, Blood 105.0 mmol/L (98-108); Creatinine, Blood 0.72 mg/dL (0.40-1.00); Globulin, Blood 4.1 g/dL (2.2-4.0); Glucose, Blood 165.0 mg/dL (70-99); Potassium, Blood 4.1 mmol/L (3.5-5.5); Sodium, Blood 136.0 mmol/L (136-145); Total Protein, Blood 6.5 g/dL (6.4-8.2)
[2025-02-14 07:59] VITALS: BP 120/83
[2025-02-14] MEDS ORDERED: HYDROmorphone HCl/Pf 1MG SYR IV ONE (13:00)
[2025-02-14] MEDS ORDERED: HYDROmorphone HCl/Pf 1MG SYR IV PRN (13:00)
[2025-02-14 15:47] VITALS: BP 130/83
--- NOTE | 2025-02-14 17:25 | NUR ---
NO ACUTE CHANGES. PT CONTINUES TO HAVE PAIN AND REPORTS POSSIBLE RECTAL BLEEDING. THIS PAINT GRINDER STONE MILL DID SEE RED BLOOD VERY MINIMAL, PT HAS ALSO BEEN MENSTRATING. WILL HAVE CONCRETE MIXER TRUCK DRIVER MONITOR CLOSELY. PT REPORTED TROUBLE CONTROLING PAIN AND DR PAYNE MADE CHANGES TO EMAR WHICH PT HAS SINCE BEEN TREATED. PT INDEPENDENT IN ROOM CALL LIGHT IN REACH.
[2025-02-14 19:47] VITALS: BP 117/75
[2025-02-15 03:43] VITALS: BP 100/65
--- NOTE | 2025-02-15 05:25 | NUR ---
PT REQUIRED PRN MEDS OVER NIGHT TO STAY COMFORTABLE. STATED SHE HAS AN APPOINTMENT WITH HER DR TO CHANGE HER MEDICATION FOR HER CHRONS DISEASE AND SHE BELIEVES WITH THAT CHANGE IT WILL RESOLVE HER ONGOING ISSUES. PT WAS ANXIOUS. BELIEVE THAT IT WAS A COMBO OF IV STEROIDS AND THE ABSENCE OF HER FAMILY FOR SUPPORT AT THE BEDSIDE. HOWEVER SHE IS PLEASANT AND ABLE TO COMMUNICATE HER NEEDS. BATTERIES REPLACED IN PERSONAL FAN. PT IS INDEPENDENT IN THE ROOM AND ABLE TO MANAGE TO THE BATHROOM WITH HER IV POLE ATTACHED.
[2025-02-15] MEDS ORDERED: Prochlorperazine Edisylate 10 mg Vial IV PRN (06:20)
[2025-02-15 06:35] VITALS: BP 119/75
[2025-02-15 06:44] LABS: BASOPHILS ABSOLUTE AUTO 0.05 K/mm3 (0.00-0.23); BASOPHILS PERCENT AUTO 0 % (0-2); EOSINOPHILS ABSOLUTE AUTO 0.00 K/mm3 (0.00-0.68); EOSINOPHILS PERCENT AUTO 0 % (0-6); Hematocrit 30.3 % (33.0-51.0); Hemoglobin 9.6 g/dL (11.5-16.0); IMMATURE GRAN ABSOLUTE AUTO 0.22 K/mm3 (0.00-0.10); IMMATURE GRAN PERCENT AUTO 1 % (0-1); LYMPHOCYTES ABSOLUTE AUTO 3.98 K/mm3 (0.84-5.20); LYMPHOCYTES PERCENT AUTO 14 % (21-46); MONOCYTES ABSOLUTE AUTO 3.77 K/mm3 (0.16-1.47); MONOCYTES PERCENT AUTO 13 % (4-13); Mean Corpuscular HGB Conc 31.7 g/dL (31.5-36.5); Mean Corpuscular Volume 84 fL (80-100); NEUTROPHILS ABSOLUTE AUTO 21.01 K/mm3 (1.96-9.15); NEUTROPHILS PERCENT AUTO 72 % (41-73); NRBC ABSOLUTE 0.00 K/mm3 (0.00-0.02); NRBC Auto 0.0 /100 WBC (0.0-0.2); Platelet Count 444 K/mm3 (150-400); RDW Coefficient Variation 14.1 % (11.7-14.2); RDW Standard Deviation 43.2 fL (35.1-46.3)
[2025-02-15 07:27] VITALS: BP 101/67
[2025-02-15 07:39] LABS: Anion Gap 6.0 mmol/L (3-11); Blood Urea Nitrogen 9.0 mg/dL (8-24); CO2, Blood 33.0 mmol/L (21-32); Calcium, Blood 8.6 mg/dL (8.5-10.1); Chloride, Blood 101.0 mmol/L (98-108); Creatinine, Blood 0.57 mg/dL (0.40-1.00); Glucose, Blood 109.0 mg/dL (70-99); Potassium, Blood 3.8 mmol/L (3.5-5.5); Sodium, Blood 136.0 mmol/L (136-145)
--- NOTE | 2025-02-15 09:12 | NUR ---
ASSUMPTION OF CARE: ASSUMED CARE OF PATIENT OVERSEEING CARE OF ORIENTING RNDARINEL. PATIENT SLEEPING DURING SHIFT CHANGE REPORT AND REQUESTED TO NOT BE WOKEN. LYING IN BED c HOB SLIGHTLY ELEVATION, SLEEPING. DID NOT DISTURB. BREATHING EVEN AND UNLABORED c RA. CALL LIGHT WITHIN REACH.
[2025-02-15 10:32] LABS: HAPTOGLOBIN 386 mg/dL (30-200)
[2025-02-15 14:39] VITALS: BP 127/89
--- NOTE | 2025-02-15 16:44 | NUR ---
THIS RN REVIEWED DOCUMENTATION OF ORIENTING NURSE, YNUIOR TENA.
--- NOTE | 2025-02-15 17:25 | NUR ---
SHIFT SUMMARY PATIENT A&OX4. CONFUSION AND FORGETFULNESS. PATIENT AMBULATES INDEPENDENTLY TO BATHROOM WITH STAND BY ASSIST. NO VOMITING WITH MINIMAL NAUSEA. SCOPALAMINE PATCH IN PLACE. DID HAVE MINIMAL PO INTAKE OF LUNCH. DOCTOR WANTED PATIENT TO PASS GAS TODAY BEFORE 1500, DOCTOR NOTIFIED PATIENT HAD NOT PASSED GAS. DOCTOR ADVISED IF PATIENT HAS A HIGH VOLUME OF EMESIS OVERNIGHT AN NG TUBE CAN BE PLACED. HE IS SLEEPING, CURRENTLY, BED IN THE LOWEST POSITION. CALL LIGHT WITHIN REACH.
--- NOTE | 2025-02-15 17:41 | NUR ---
SHIFT SUMMARY PATIENT A&OX4. INDEPENDENT TO THE BATHROOM. OUT FOR WALKS IN THE DAVILA TODAY. TREATED FOR PAIN PER EMAR. PATIENT CONTINENT. USES CALL LIGHT APPROPRIATELY. CURRENTLY IN BED SLEEPING, THE BED IS IN THE LOWEST POSITION AND CALL LIGHT IS WITHIN HER REACH.
[2025-02-15 19:55] VITALS: BP 114/73
[2025-02-16 04:31] VITALS: BP 128/81
--- NOTE | 2025-02-16 05:29 | NUR ---
PT REQUIRED A COUPLE OF PRN MEDICATIONS OVER NIGHT FOR PAIN. OTHER DE LA FUENTE STABLE AND NO ACUTE EVENTS.
[2025-02-16 06:29] LABS: BASOPHILS ABSOLUTE AUTO 0.01 K/mm3 (0.00-0.23); BASOPHILS PERCENT AUTO 0 % (0-2); EOSINOPHILS ABSOLUTE AUTO 0.00 K/mm3 (0.00-0.68); EOSINOPHILS PERCENT AUTO 0 % (0-6); Hematocrit 30.7 % (33.0-51.0); Hemoglobin 9.8 g/dL (11.5-16.0); IMMATURE GRAN ABSOLUTE AUTO 0.11 K/mm3 (0.00-0.10); IMMATURE GRAN PERCENT AUTO 1 % (0-1); LYMPHOCYTES ABSOLUTE AUTO 1.50 K/mm3 (0.84-5.20); LYMPHOCYTES PERCENT AUTO 10 % (21-46); MONOCYTES ABSOLUTE AUTO 1.07 K/mm3 (0.16-1.47); MONOCYTES PERCENT AUTO 7 % (4-13); Mean Corpuscular HGB Conc 31.9 g/dL (31.5-36.5); Mean Corpuscular Volume 85 fL (80-100); NEUTROPHILS ABSOLUTE AUTO 13.02 K/mm3 (1.96-9.15); NEUTROPHILS PERCENT AUTO 83 % (41-73); NRBC ABSOLUTE 0.00 K/mm3 (0.00-0.02); NRBC Auto 0.0 /100 WBC (0.0-0.2); Platelet Count 424 K/mm3 (150-400); RDW Coefficient Variation 14.2 % (11.7-14.2); RDW Standard Deviation 43.9 fL (35.1-46.3)
[2025-02-16 07:00] LABS: Anion Gap 8.0 mmol/L (3-11); Blood Urea Nitrogen 12.0 mg/dL (8-24); CO2, Blood 33.0 mmol/L (21-32); Calcium, Blood 8.5 mg/dL (8.5-10.1); Chloride, Blood 99.0 mmol/L (98-108); Creatinine, Blood 0.72 mg/dL (0.40-1.00); Glucose, Blood 150.0 mg/dL (70-99); Potassium, Blood 4.1 mmol/L (3.5-5.5); Sodium, Blood 136.0 mmol/L (136-145)
[2025-02-16 07:43] VITALS: BP 110/66
[2025-02-16 16:17] VITALS: BP 127/94
--- NOTE | 2025-02-16 18:15 | NUR ---
END OF SHIFT SUMMARY: A&Ox4. PLEASANT AND COOPERATIVE WITH CARE. CALLS APPROPRIATELY AND IS ABLE TO ADVOCATE NEEDS EFFECTIVELY. VSS. BREATHING EVEN AND UNLABORED c RA. CONTINENT OF BOWEL AND BLADDER; LBM TODAY AND CONTINUES c SOFT STOOLS TODAY. CONTINUES TO REQUEST IV DILAUDID 2MG q4h ROUTINELY. AMBULATES INDEPENDENTLY FWW. MEDS WHOLE c FLUIDS. LABS STABLE. ANTICIPATE DC TOMORROW PER DR PAYNE. POWERGLIDE ALEX FLUSHES AND DRAWS. CONTINUES c LR @ 75mL/hr WITH SHORT BREAKS INTERMITTENTLY TO WALK AROUND THE UNIT. TOLERATING PO INTAKE. DID REFUSE LOVENOX INJECTION TODAY. BED IN LOWEST POSITION, CALL LIGHT WITHIN REACH, ALL NEEDS MET. REPORT TO ONCOMING NURSE.
[2025-02-16 19:48] VITALS: BP 125/92
[2025-02-17 05:26] VITALS: BP 94/49
--- NOTE | 2025-02-17 06:21 | NUR ---
PATIENT REQUIRED MANY DOSES OF PRN MEDS FOR COMFORT. PATIENT REPORTS OF HAVING NIGHTMARES AND HAVING TO GET UP TO USE THE RESTROOM OFTEN BUT OTHERWISE NO CHANGES. BED IN LOW POSITION AND PATIENT WAS EDUCATED THAT IF SHE WERE TO BE FEELING UNWELL TO PLEASE CALL FOR ASSIST TO BATHROOM. PATIENT ACKNOWLEDGES EDUCATION AND FALL RISK. POSSESSIONS WITHIN REACH. POWERGLIDE STOPPED DRAWING BACK.
[2025-02-17 06:24] LABS: BASOPHILS ABSOLUTE AUTO 0.02 K/mm3 (0.00-0.23); BASOPHILS PERCENT AUTO 0 % (0-2); EOSINOPHILS ABSOLUTE AUTO 0.00 K/mm3 (0.00-0.68); EOSINOPHILS PERCENT AUTO 0 % (0-6); Hematocrit 32.8 % (33.0-51.0); Hemoglobin 10.0 g/dL (11.5-16.0); IMMATURE GRAN ABSOLUTE AUTO 0.09 K/mm3 (0.00-0.10); IMMATURE GRAN PERCENT AUTO 1 % (0-1); LYMPHOCYTES ABSOLUTE AUTO 1.45 K/mm3 (0.84-5.20); LYMPHOCYTES PERCENT AUTO 13 % (21-46); MONOCYTES ABSOLUTE AUTO 1.37 K/mm3 (0.16-1.47); MONOCYTES PERCENT AUTO 12 % (4-13); Mean Corpuscular HGB Conc 30.5 g/dL (31.5-36.5); Mean Corpuscular Volume 85 fL (80-100); NEUTROPHILS ABSOLUTE AUTO 8.64 K/mm3 (1.96-9.15); NEUTROPHILS PERCENT AUTO 75 % (41-73); NRBC ABSOLUTE 0.00 K/mm3 (0.00-0.02); NRBC Auto 0.0 /100 WBC (0.0-0.2); Platelet Count 414 K/mm3 (150-400); RDW Coefficient Variation 14.4 % (11.7-14.2); RDW Standard Deviation 44.6 fL (35.1-46.3)
[2025-02-17 06:41] LABS: Anion Gap 8.0 mmol/L (3-11); Blood Urea Nitrogen 11.0 mg/dL (8-24); CO2, Blood 32.0 mmol/L (21-32); Calcium, Blood 8.4 mg/dL (8.5-10.1); Chloride, Blood 99.0 mmol/L (98-108); Creatinine, Blood 0.59 mg/dL (0.40-1.00); Glucose, Blood 138.0 mg/dL (70-99); Potassium, Blood 3.5 mmol/L (3.5-5.5); Sodium, Blood 135.0 mmol/L (136-145)
[2025-02-17 07:20] VITALS: BP 102/62
[2025-02-17] MEDS ORDERED: TRAZ50 PO (13:05)
[2025-02-17] MEDS ORDERED: Acetaminophen325 M1 PO (13:05)
[2025-02-17] MEDS ORDERED: OXYC10TA19 PO (13:05)
--- NOTE | 2025-02-17 15:01 | NUR ---
DISCHARGE REVIEWED DISCHARGE INSTRUCTIONS W/PT WHO VERBALIZED UNDERSTANDING, IV REMOVED, MEDS FAXED TO PHARMACY, PT WALKED OUT FOR DISCHARGE W/MOM FOR DISCHARGE AT 1332.
[2025-02-18 19:57] LABS: CALPROTECTIN,FECAL >3000 ug/g (<=49)
== END 2025-02-17 13:32 | disposition home or self-care (01) | DRG 392 ==
LOC: ER 07:17 → MEDS 07:18
PROVIDERS: Student in an Organized Health Care Education/Training Program; ADMIT Family Medicine
DX: K52.9 Noninfective gastroenteritis and colitis, unspecified (principal); K50.90 Crohn's disease, unspecified, without complications; K62.5 Hemorrhage of anus and rectum; F32.A Depression, unspecified; G47.9 Sleep disorder, unspecified; Z79.899 Other long term (current) drug therapy; Z79.52 Long term (current) use of systemic steroids; Z79.891 Long term (current) use of opiate analgesic; Z98.890 Other specified postprocedural states
CPT/HCPCS: 36415; 80048; 80053; 81001; 82607; 82728; 82746; 83010; 83540; 83550; 83615; 83690; 83993; 85025; 85045; 86140; 87507; 96374; 96375; 99284; A9270; G0378; J0780; J1171; J1885; J2405; J2919; J3010; J7030; J7120

== ENCOUNTER 2025-04-27 19:21 | Emergency (ER) | payer OTHER ==
[~2025-04-27] VITALS: Ht 157.5 cm; Wt 56.7 kg
[~2025-04-27 19:21] MED LIST changes: +Acetaminophen325 M1 PO; +OXYC10TA19 PO; +TRAZ50 PO
[2025-04-27] MEDS ORDERED: Ondansetron HCl 2 MG / ML 2ML Vial IV PRN (20:00)
[2025-04-27] MEDS ORDERED: Ketorolac Tromethamine 15mg Vial IV ONE (20:05)
[2025-04-27] MEDS ORDERED: NS 1,000 ML IV SCH ×2 (20:05→22:30)
[2025-04-27 20:23] LABS: BASOPHILS ABSOLUTE AUTO 0.04 K/mm3 (0.00-0.23); BASOPHILS PERCENT AUTO 0 % (0-2); EOSINOPHILS ABSOLUTE AUTO 0.00 K/mm3 (0.00-0.68); EOSINOPHILS PERCENT AUTO 0 % (0-6); Hematocrit 36.0 % (33.0-51.0); Hemoglobin 11.4 g/dL (11.5-16.0); IMMATURE GRAN ABSOLUTE AUTO 0.05 K/mm3 (0.00-0.10); IMMATURE GRAN PERCENT AUTO 0 % (0-1); LYMPHOCYTES ABSOLUTE AUTO 2.66 K/mm3 (0.84-5.20); LYMPHOCYTES PERCENT AUTO 18 % (21-46); MONOCYTES ABSOLUTE AUTO 1.46 K/mm3 (0.16-1.47); MONOCYTES PERCENT AUTO 10 % (4-13); Mean Corpuscular HGB Conc 31.7 g/dL (31.5-36.5); Mean Corpuscular Volume 82 fL (80-100); NEUTROPHILS ABSOLUTE AUTO 10.83 K/mm3 (1.96-9.15); NEUTROPHILS PERCENT AUTO 72 % (41-73); NRBC ABSOLUTE 0.00 K/mm3 (0.00-0.02); NRBC Auto 0.0 /100 WBC (0.0-0.2); Platelet Count 456 K/mm3 (150-400); RDW Coefficient Variation 13.5 % (11.7-14.2); RDW Standard Deviation 40.3 fL (35.1-46.3)
[2025-04-27 20:42] LABS: Alanine Aminotransfer (ALT/SGP 23.0 U/L (12-78); Albumin, Blood 2.8 g/dL (3.4-5.0); Albumin/Globulin Ratio 0.5 (0.8-1.8); Anion Gap 11.0 mmol/L (3-11); Aspartate Aminotrans (AST/SGOT 32.0 U/L (12-37); Bilirubin, Total 0.2 mg/dL (0.1-1.0); Blood Urea Nitrogen 11.0 mg/dL (8-24); CO2, Blood 26.0 mmol/L (21-32); Calcium, Blood 9.2 mg/dL (8.5-10.1); Chloride, Blood 104.0 mmol/L (98-108); Creatinine, Blood 0.61 mg/dL (0.40-1.00); Globulin, Blood 5.8 g/dL (2.2-4.0); Glucose, Blood 117.0 mg/dL (70-99); Potassium, Blood 4.5 mmol/L (3.5-5.5); Sodium, Blood 136.0 mmol/L (136-145); Total Protein, Blood 8.6 g/dL (6.4-8.2)
[2025-04-27 21:38] LABS: Source, Urine Clean Catch
[2025-04-27 21:44] LABS: Bilirubin, Urine Neg (Neg); Glucose Qualitative, Urine Neg (Neg); Ketones, Urine 2+ (Neg); Leukocyte Esterase, Urine 1+ (Neg); Protein, Urine 3+ (Neg); Specific Gravity, Urine 1.015 (1.003-1.022); Urobilinogen, Urine 1+ (Normal)
[2025-04-27 21:49] LABS: Color, Urine Yellow (P-Yellow)
[2025-04-27 21:53] LABS: Red Blood Cells, Urine TNTC /hpf (0-2)
[2025-04-27] MEDS ORDERED: HYDROmorphone HCl/Pf 1MG SYR IV PRN (22:35)
[2025-04-27] MEDS ORDERED: Ondansetron HCl 2 MG / ML 2ML Vial IV ONE (22:35)
[2025-04-27] MEDS ORDERED: PRED20 PO (23:44)
[2025-04-27] MEDS ORDERED: RX Prepack 2 Tabs Ondansetron ODT 4MG UD ONE (23:45)
[2025-04-27 23:50] VITALS: BP 112/76
[2025-04-27] MEDS ORDERED: RX Prepack 6 Tabs Oxycodone 5mg UD ONE (23:55)
== END 2025-04-27 23:59 | disposition home or self-care (01) ==
LOC: ER 19:21
PROVIDERS: Physician Assistant
DX: K50.90 Crohn's disease, unspecified, without complications (principal); D64.9 Anemia, unspecified; Z79.52 Long term (current) use of systemic steroids; Z79.899 Other long term (current) drug therapy
CPT/HCPCS: 80053; 81001; 81025; 83690; 85025; 87086; 96361; 96374; 96375; 96376; 99283-25; A9270; J1171; J1885; J2405; J7030; J7512

== ENCOUNTER 2025-05-02 16:30 | Inpatient (IN) | payer OTHER ==
[~2025-05-02] VITALS: Ht 160 cm; Wt 70.4 kg
[2025-05-02 17:54] VITALS: BP 106/80
[2025-05-02] MEDS ORDERED: NS 1,000 ML IV SCH (18:10)
[2025-05-02] MEDS ORDERED: Ondansetron HCl 2 MG / ML 2ML Vial IV PRN (18:15)
[2025-05-02] MEDS ORDERED: HYDROmorphone HCl/Pf 1MG SYR IV PRN (18:15)
[2025-05-02] MEDS ORDERED: FLU VACC TS2025-26(6MOS UP)/PF 45 MCG/0.5 ML SYRINGE IM SCH (18:15)
[2025-05-02] MEDS ORDERED: FentaNYL Citrate 50 MCG/ML 2 ML Injection IV PRN (18:15)
[2025-05-02 19:08] LABS: Hematocrit 39.0 % (33.0-51.0); Hemoglobin 12.2 g/dL (11.5-16.0); Mean Corpuscular HGB Conc 31.3 g/dL (31.5-36.5); Mean Corpuscular Volume 83 fL (80-100); NRBC ABSOLUTE 0.00 K/mm3 (0.00-0.02); NRBC Auto 0.0 /100 WBC (0.0-0.2); Platelet Count 437 K/mm3 (150-400); RDW Coefficient Variation 13.6 % (11.7-14.2); RDW Standard Deviation 40.8 fL (35.1-46.3)
[2025-05-02 19:28] LABS: Alanine Aminotransfer (ALT/SGP 17.0 U/L (12-78); Albumin, Blood 2.7 g/dL (3.4-5.0); Albumin/Globulin Ratio 0.5 (0.8-1.8); Anion Gap 9.0 mmol/L (3-11); Aspartate Aminotrans (AST/SGOT 11.0 U/L (12-37); Bilirubin, Total 0.2 mg/dL (0.1-1.0); Blood Urea Nitrogen 11.0 mg/dL (8-24); CO2, Blood 28.0 mmol/L (21-32); Calcium, Blood 9.0 mg/dL (8.5-10.1); Chloride, Blood 104.0 mmol/L (98-108); Creatinine, Blood 0.66 mg/dL (0.40-1.00); Globulin, Blood 5.1 g/dL (2.2-4.0); Glucose, Blood 76.0 mg/dL (70-99); Potassium, Blood 3.7 mmol/L (3.5-5.5); Sodium, Blood 137.0 mmol/L (136-145); Total Protein, Blood 7.8 g/dL (6.4-8.2)
[2025-05-02 19:33] VITALS: BP 123/80
--- NOTE | 2025-05-02 19:44 | NUR ---
ADMIT NOTE PT IS A DIRECT ADMIT. PT A&OX4, PT ADMITTED DUE TO CHRONES FLARE. PT REPORTS PAIN, NO NAUSEA. THIS RN BROUGHT PT UP FROM ER VIA WHEELCHAIR. PT HAS A COUGH AND NASAL DRIP REPORTS "CONTACT WITH SOMEONE SICK AT [facility]." DR. PAYNE ORDERED RESP PANEL. DR. PAYNE NOTIFIED OF PT ADMISSION, CAME TO ROOM. DR. PAYNE PUT IN ORDERS. THIS RN TRIED FOR IV X2. МАРИЯ RN TRIED FOR IV. NIGHT RN NOTIFIED NO IV ACCESS YET. QUICK ADMIT COMPLETE, REPORTED TO NIGHT RN, REST OF ADMIT NEEDS COMPLETE. PT ORIENTED TO UNIT/CALL LIGHT/FALL PRECAUTIONS. PT REF TYLENOL. PT IN BED, BED IN LOWEST POSITION, CALL LIGHT IN REACH. PT VSS.
[2025-05-02 19:56] LABS: BASOPHILS ABSOLUTE MAN 0.32 K/mm3 (0.00-0.23); BASOPHILS PERCENT MAN 2 % (0-2); EOSINOPHILS ABSOLUTE MAN 0.16 K/mm3 (0.00-0.68); EOSINOPHILS PERCENT MAN 1 % (0-6); LYMPHOCYTES ABSOLUTE MAN 4.80 K/mm3 (0.84-5.20); LYMPHOCYTES PERCENT MAN 30 % (21-46); MONOCYTES ABSOLUTE MAN 1.44 K/mm3 (0.16-1.47); MONOCYTES PERCENT MAN 9 % (4-13); NEUTROPHILS ABSOLUTE MAN 9.28 K/mm3 (1.96-9.15); SEG NEUTROPHILS PERCENT MAN 58 % (41-73)
[2025-05-02 21:45] LABS: Influenza A, PCR NEGATIVE (NEGATIVE); Influenza B, PCR NEGATIVE (NEGATIVE); Resp Syncytial Virus, PCR NEGATIVE (NEGATIVE); SARS-Cov-2 (COVID-19) PCR, MMC NEGATIVE (NEGATIVE)
[2025-05-02] MEDS ORDERED: STELARA45 MG/0.3 SC (22:47)
[2025-05-03 05:33] LABS: BASOPHILS ABSOLUTE AUTO 0.01 K/mm3 (0.00-0.23); BASOPHILS PERCENT AUTO 0 % (0-2); EOSINOPHILS ABSOLUTE AUTO 0.01 K/mm3 (0.00-0.68); EOSINOPHILS PERCENT AUTO 0 % (0-6); Hematocrit 34.6 % (33.0-51.0); Hemoglobin 10.9 g/dL (11.5-16.0); IMMATURE GRAN ABSOLUTE AUTO 0.07 K/mm3 (0.00-0.10); IMMATURE GRAN PERCENT AUTO 1 % (0-1); LYMPHOCYTES ABSOLUTE AUTO 2.33 K/mm3 (0.84-5.20); LYMPHOCYTES PERCENT AUTO 19 % (21-46); MONOCYTES ABSOLUTE AUTO 0.10 K/mm3 (0.16-1.47); MONOCYTES PERCENT AUTO 1 % (4-13); Mean Corpuscular HGB Conc 31.5 g/dL (31.5-36.5); Mean Corpuscular Volume 82 fL (80-100); NEUTROPHILS ABSOLUTE AUTO 9.58 K/mm3 (1.96-9.15); NEUTROPHILS PERCENT AUTO 79 % (41-73); NRBC ABSOLUTE 0.00 K/mm3 (0.00-0.02); NRBC Auto 0.0 /100 WBC (0.0-0.2); Platelet Count 428 K/mm3 (150-400); RDW Coefficient Variation 13.8 % (11.7-14.2); RDW Standard Deviation 41.0 fL (35.1-46.3)
[2025-05-03 05:57] LABS: Alanine Aminotransfer (ALT/SGP 19.0 U/L (12-78); Albumin, Blood 2.5 g/dL (3.4-5.0); Albumin/Globulin Ratio 0.5 (0.8-1.8); Anion Gap 7.0 mmol/L (3-11); Aspartate Aminotrans (AST/SGOT 13.0 U/L (12-37); Bilirubin, Total 0.2 mg/dL (0.1-1.0); Blood Urea Nitrogen 9.0 mg/dL (8-24); CO2, Blood 27.0 mmol/L (21-32); Calcium, Blood 8.7 mg/dL (8.5-10.1); Chloride, Blood 105.0 mmol/L (98-108); Creatinine, Blood 0.59 mg/dL (0.40-1.00); Globulin, Blood 4.7 g/dL (2.2-4.0); Glucose, Blood 149.0 mg/dL (70-99); Potassium, Blood 4.4 mmol/L (3.5-5.5); Sodium, Blood 135.0 mmol/L (136-145); Total Protein, Blood 7.2 g/dL (6.4-8.2)
--- NOTE | 2025-05-03 06:18 | NUR ---
SHIFT SUMMARY DIRECT ADMIT 05.02.[address] PAYNE FOR CROHNS FLARE. 2 WEEKS OF ABD PAIN, NAUSEA, LOOSE BMS. HAS HAD INITIAL LOADING DOSE + 1 MAINTENANCE DOSE OF SC STERLARA THUS FAR THAT SHE SELF-ADMINISTERS Q8W. ALSO HAS MILD COUGH, RHINORRHEA, RAMÍREZ. NEGATIVE COVID/FLU A&B/RSV PANEL. PAIN RELATED TO CROHNS MANAGED PER EMAR. AFEBRILE. DOWNTRENDING WBC COUNT.TOLERATING CLEAR LIQUID DIET WELL. IV IN RFA WITH LR INFUSION @ 150 ML/HR. A&OX4, INDEPENDENT IN ROOM. PT PLANS TO ASK PROVIDER TODAY IF ADDT'L IMAGING IS WANTED. ESTABLISHED WITH [facility] QUINTIN LACEY PA-C, AND HAS ALSO SEEN DR. GARCIA PREVIOUSLY.
[2025-05-03 07:32] VITALS: BP 106/60
[2025-05-03] MEDS ORDERED: Enoxaparin 40 MG/0.4 ML SYR SC SCH (09:00)
[2025-05-03 15:14] VITALS: BP 106/78
--- NOTE | 2025-05-03 18:30 | NUR ---
SHIFT SUMMARY PT A&OX4, VSS, NON TELE. PAIN MANAGED WITH PRN DILAUDED AND FENTANYL, OXYCODONE OFFERED, PT REFUSED. IND IN ROOM. DIET ADVANCED TO REGULAR. PT ABLE TO MAKE NEEDS KNOW, CALL LIGHT IN REACH.
[2025-05-03 19:28] VITALS: BP 116/72
[2025-05-04 04:59] VITALS: BP 101/59
--- NOTE | 2025-05-04 05:13 | NUR ---
SHIFT SUMMARY; PT A/OX4 AND INDEPENDENT IN THE ROOM. PT'S BOYFRIEND IS AT BEDSIDE AND STAYED W/ PT THROUGHOUT THE NIGHT. PT OBSERVED TOLERATING REGULAR PO DIET W/ INTERMITTENT NAUSEA AND NO VOMITING. PT'S PAIN HAS BEEN CONSISTENT AT 6-7/10 ON THE 0-10 PAIN SCALE THROUGHOUT THE NIGHT. PT MEDICATED PER EMAR. PT ENCOURAGED TO TAKE PO PAIN MEDICATION, HOWEVER PT HAS DECLINED PO ADMINISTRATION AND HAS REQUESTED TO HAVE IV PAIN MEDICATIONS TONIGHT. PT HAS GOOD URINE OUTPUT. PT REPORTS HAVING FREQUENT SMALL, LOOSE BMS THROUGHOUT THE NIGHT. PT DENIES BLOOD IN STOOL. VSS. BED IN LOWEST POSITION AND CALL LIGHT WITHIN REACH.
[2025-05-04 05:22] LABS: BASOPHILS ABSOLUTE AUTO 0.03 K/mm3 (0.00-0.23); BASOPHILS PERCENT AUTO 0 % (0-2); EOSINOPHILS ABSOLUTE AUTO 0.00 K/mm3 (0.00-0.68); EOSINOPHILS PERCENT AUTO 0 % (0-6); Hematocrit 31.5 % (33.0-51.0); Hemoglobin 10.0 g/dL (11.5-16.0); IMMATURE GRAN ABSOLUTE AUTO 0.22 K/mm3 (0.00-0.10); IMMATURE GRAN PERCENT AUTO 1 % (0-1); LYMPHOCYTES ABSOLUTE AUTO 3.15 K/mm3 (0.84-5.20); LYMPHOCYTES PERCENT AUTO 13 % (21-46); MONOCYTES ABSOLUTE AUTO 1.24 K/mm3 (0.16-1.47); MONOCYTES PERCENT AUTO 5 % (4-13); Mean Corpuscular HGB Conc 31.7 g/dL (31.5-36.5); Mean Corpuscular Volume 83 fL (80-100); NEUTROPHILS ABSOLUTE AUTO 18.96 K/mm3 (1.96-9.15); NEUTROPHILS PERCENT AUTO 80 % (41-73); NRBC ABSOLUTE 0.00 K/mm3 (0.00-0.02); NRBC Auto 0.0 /100 WBC (0.0-0.2); Platelet Count 458 K/mm3 (150-400); RDW Coefficient Variation 13.7 % (11.7-14.2); RDW Standard Deviation 41.9 fL (35.1-46.3)
[2025-05-04 05:56] LABS: Alanine Aminotransfer (ALT/SGP 29.0 U/L (12-78); Albumin, Blood 2.6 g/dL (3.4-5.0); Albumin/Globulin Ratio 0.6 (0.8-1.8); Anion Gap 8.0 mmol/L (3-11); Aspartate Aminotrans (AST/SGOT 16.0 U/L (12-37); Bilirubin, Total 0.1 mg/dL (0.1-1.0); Blood Urea Nitrogen 11.0 mg/dL (8-24); CO2, Blood 27.0 mmol/L (21-32); Calcium, Blood 8.7 mg/dL (8.5-10.1); Chloride, Blood 106.0 mmol/L (98-108); Creatinine, Blood 0.52 mg/dL (0.40-1.00); Globulin, Blood 4.3 g/dL (2.2-4.0); Glucose, Blood 151.0 mg/dL (70-99); Potassium, Blood 3.9 mmol/L (3.5-5.5); Sodium, Blood 137.0 mmol/L (136-145); Total Protein, Blood 6.9 g/dL (6.4-8.2)
[2025-05-04 07:13] VITALS: BP 110/72
[2025-05-04] MEDS ORDERED: Pantoprazole Sodium 40 MG Injection IV SCH (13:00)
[2025-05-04 15:09] VITALS: BP 115/78
--- NOTE | 2025-05-04 17:48 | NUR ---
SHIFT SUMMARY NO ACUTE CHANGES. A/Ox4, INDEPENDENT IN ROOM. TREATED FOR PAIN PER EMAR - PAIN MANAGEMENT IMPROVING WITH ORAL OXYCODONE AND DILAUDID. CONT PULSE OX APPLIED TODAY DUE TO MULTIPLE NARCOTICS IN USE. VITALS STABLE. DIARRHEA AND GAS TODAY. FAIR INTAKE. FLUIDS STOPPED. ATARX ORDERED FOR ANXIETY RELATED TO STEROID ADMINISTRATION. PT CURRENTLY RESTING IN BED WITH BED IN LOWEST POSITION AND CALL LIGHT WITHIN REACH.
[2025-05-04 19:25] VITALS: BP 129/89
[2025-05-05 05:52] VITALS: BP 114/80
[2025-05-05 06:34] LABS: BASOPHILS ABSOLUTE AUTO 0.02 K/mm3 (0.00-0.23); BASOPHILS PERCENT AUTO 0 % (0-2); EOSINOPHILS ABSOLUTE AUTO 0.00 K/mm3 (0.00-0.68); EOSINOPHILS PERCENT AUTO 0 % (0-6); Hematocrit 37.3 % (33.0-51.0); Hemoglobin 11.2 g/dL (11.5-16.0); IMMATURE GRAN ABSOLUTE AUTO 0.13 K/mm3 (0.00-0.10); IMMATURE GRAN PERCENT AUTO 1 % (0-1); LYMPHOCYTES ABSOLUTE AUTO 1.57 K/mm3 (0.84-5.20); LYMPHOCYTES PERCENT AUTO 12 % (21-46); MONOCYTES ABSOLUTE AUTO 1.04 K/mm3 (0.16-1.47); MONOCYTES PERCENT AUTO 8 % (4-13); Mean Corpuscular HGB Conc 30.0 g/dL (31.5-36.5); Mean Corpuscular Volume 85 fL (80-100); NEUTROPHILS ABSOLUTE AUTO 10.73 K/mm3 (1.96-9.15); NEUTROPHILS PERCENT AUTO 80 % (41-73); NRBC ABSOLUTE 0.00 K/mm3 (0.00-0.02); NRBC Auto 0.0 /100 WBC (0.0-0.2); Platelet Count 487 K/mm3 (150-400); RDW Coefficient Variation 14.0 % (11.7-14.2); RDW Standard Deviation 43.4 fL (35.1-46.3)
--- NOTE | 2025-05-05 06:45 | NUR ---
SHIFT SUMMARY; PT A/OX4 AND INDEPENDENT IN THE ROOM. PT REPORTS 7/10 PAIN ON THE 0-10 PAIN SCALE DESCRIBED A RIPPING SENSATION. PT MEDICATED PER EMAR. PT HAS INCREASED APPETITE AND ANXIETY. EDUCATED PT THAT THESE S/SXS ARE MOST LIKELY DUE TO STEROID ADMINISTRATION. PT CONTINUES TO HAVE SMALL, LOOSE BMS. VSS. BED IN LOWEST POSITION AND CALL LIGHT WITHIN REACH.
[2025-05-05 07:11] LABS: Alanine Aminotransfer (ALT/SGP 26.0 U/L (12-78); Albumin, Blood 2.8 g/dL (3.4-5.0); Albumin/Globulin Ratio 0.6 (0.8-1.8); Anion Gap 6.0 mmol/L (3-11); Aspartate Aminotrans (AST/SGOT 12.0 U/L (12-37); Bilirubin, Total 0.1 mg/dL (0.1-1.0); Blood Urea Nitrogen 14.0 mg/dL (8-24); CO2, Blood 30.0 mmol/L (21-32); Calcium, Blood 9.1 mg/dL (8.5-10.1); Chloride, Blood 102.0 mmol/L (98-108); Creatinine, Blood 0.69 mg/dL (0.40-1.00); Globulin, Blood 5.0 g/dL (2.2-4.0); Glucose, Blood 104.0 mg/dL (70-99); Potassium, Blood 4.0 mmol/L (3.5-5.5); Sodium, Blood 134.0 mmol/L (136-145); Total Protein, Blood 7.8 g/dL (6.4-8.2)
[2025-05-05 07:25] VITALS: BP 120/76
[2025-05-05] MEDS ORDERED: Morphine Sulfate 10 MG/ML 1MLSYR IV PRN (12:20)
[2025-05-05 15:58] VITALS: BP 128/89
--- NOTE | 2025-05-05 16:34 | NUR ---
SHIFT SUMMARY NO ACUTE CHANGES, A/Ox4, ABLE TO MAKE NEEDS KNOWN AND INDEPENDENT IN ROOM. PAIN MANAGEMENT IMPROVING WITH CHANGE FROM DILAUDID TO MORPHINE. PT CONTINUES TO HAVE EXCELLENT APPETITE/ORAL INTAKE. APPROX 4 LOOSE BM TODAY. PT REPORTS RECTAL PAIN FROM LOOSE STOOL, BARRIER CREAM PROVIDED. VITALS WNL. PT CURRENTLY RESTING IN BED WITH BED IN LOWEST POSITION AND CALL LIGHT WITHIN REACH. CONTINUOUS PULSE OX IN PLACE.
[2025-05-05 19:19] VITALS: BP 121/80
[2025-05-06 00:27] LABS: CALPROTECTIN,FECAL >3000 ug/g (<=49)
[2025-05-06 04:29] VITALS: BP 105/60
[2025-05-06 05:51] LABS: BASOPHILS ABSOLUTE AUTO 0.02 K/mm3 (0.00-0.23); BASOPHILS PERCENT AUTO 0 % (0-2); EOSINOPHILS ABSOLUTE AUTO 0.00 K/mm3 (0.00-0.68); EOSINOPHILS PERCENT AUTO 0 % (0-6); Hematocrit 36.2 % (33.0-51.0); Hemoglobin 11.0 g/dL (11.5-16.0); IMMATURE GRAN ABSOLUTE AUTO 0.12 K/mm3 (0.00-0.10); IMMATURE GRAN PERCENT AUTO 1 % (0-1); LYMPHOCYTES ABSOLUTE AUTO 2.07 K/mm3 (0.84-5.20); LYMPHOCYTES PERCENT AUTO 13 % (21-46); MONOCYTES ABSOLUTE AUTO 1.22 K/mm3 (0.16-1.47); MONOCYTES PERCENT AUTO 8 % (4-13); Mean Corpuscular HGB Conc 30.4 g/dL (31.5-36.5); Mean Corpuscular Volume 85 fL (80-100); NEUTROPHILS ABSOLUTE AUTO 12.37 K/mm3 (1.96-9.15); NEUTROPHILS PERCENT AUTO 78 % (41-73); NRBC ABSOLUTE 0.00 K/mm3 (0.00-0.02); NRBC Auto 0.0 /100 WBC (0.0-0.2); Platelet Count 460 K/mm3 (150-400); RDW Coefficient Variation 14.0 % (11.7-14.2); RDW Standard Deviation 43.2 fL (35.1-46.3)
--- NOTE | 2025-05-06 06:23 | NUR ---
SHIIFT SUMMARY; PT A/OX4 AND INDEPENDENT IN THE ROOM. PT REPORTS 7/10 PAIN ON THE 0-10 PAIN SCALE DESCRIBED A RIPPING SENSATION. PT MEDICATED PER EMAR. PAIN SEEMED WELL CONTROLLED MOSTLY THROUGHOUT THE NIGHT, HOWEVER TOWARDS TO THE END OF SHIFT PT REPORTS NO LESSENING OF PAIN. I ASKED PT IF SHE WOULD PREFER A DOSE OF TYLENOL OR ATARX TO HOLD HER OVER UNTIL NEXT DOSE OF CONTROLLED MEDICATION CAN BE GIVEN. PT IS NOT WANTING THESE MEDICATIONS. PT HAS FEW LOOSE STOOLS THROUGHOUT THE NIGHT. VSS. BED IN LOWEST POSITION AND CALL LIGHT WITHIN REACH.
[2025-05-06 06:33] LABS: Anion Gap 5.0 mmol/L (3-11); Blood Urea Nitrogen 15.0 mg/dL (8-24); CO2, Blood 32.0 mmol/L (21-32); Calcium, Blood 8.7 mg/dL (8.5-10.1); Chloride, Blood 101.0 mmol/L (98-108); Creatinine, Blood 0.74 mg/dL (0.40-1.00); Glucose, Blood 105.0 mg/dL (70-99); Potassium, Blood 4.1 mmol/L (3.5-5.5); Sodium, Blood 134.0 mmol/L (136-145)
[2025-05-06 07:46] VITALS: BP 111/72
[2025-05-06 15:43] LABS: IMMATURE RETIC FRACTION 7.8 % (2.3-16.0); RETIC HGB EQUIVALENT 30.4 pg (28.20-36.60); RETICULOCYTE ABSOLUTE 0.0594 M/mm3 (0.0200-0.1100); RETICULOCYTE COUNT PERCENT 1.35 % (0.50-2.50)
[2025-05-06 16:25] LABS: Ferritin, Serum 102.0 ng/mL (8-252); Lactate Dehydrogenase (Ld),Bld 201.0 U/L (100-240); Total Iron Binding Capacity 262.0 ug/dL (250-450)
[2025-05-06 16:26] VITALS: BP 130/83
--- NOTE | 2025-05-06 18:36 | NUR ---
PATIENT A/OX4, UP INDEPENDENTLY IN ROOM. VSS, ON RA. MORPHINE GIVEN X2 THIS SHIFT FOR BREAKTHROUGH PAIN. SCHEDULED OXYCODONE GIVEN Q4 HOURS. PATIENT HAVING ANXIETY R/T STEROIDS, ATARAX GIVEN TO TREAT. CONTINUES TO HAVE FREQUENT LOOSE STOOLS. PLEASANT AND COOPERATIVE WITH CARE, ABLE TO MAKE NEEDS KNOWNE. NO NEW CONCERNS THIS SHIFT.
[2025-05-06 19:37] VITALS: BP 130/91
[2025-05-07 03:54] VITALS: BP 120/76
[2025-05-07 05:39] LABS: BASOPHILS ABSOLUTE AUTO 0.03 K/mm3 (0.00-0.23); BASOPHILS PERCENT AUTO 0 % (0-2); EOSINOPHILS ABSOLUTE AUTO 0.00 K/mm3 (0.00-0.68); EOSINOPHILS PERCENT AUTO 0 % (0-6); Hematocrit 36.9 % (33.0-51.0); Hemoglobin 11.2 g/dL (11.5-16.0); IMMATURE GRAN ABSOLUTE AUTO 0.15 K/mm3 (0.00-0.10); IMMATURE GRAN PERCENT AUTO 1 % (0-1); LYMPHOCYTES ABSOLUTE AUTO 2.37 K/mm3 (0.84-5.20); LYMPHOCYTES PERCENT AUTO 17 % (21-46); MONOCYTES ABSOLUTE AUTO 1.35 K/mm3 (0.16-1.47); MONOCYTES PERCENT AUTO 10 % (4-13); Mean Corpuscular HGB Conc 30.4 g/dL (31.5-36.5); Mean Corpuscular Volume 84 fL (80-100); NEUTROPHILS ABSOLUTE AUTO 9.87 K/mm3 (1.96-9.15); NEUTROPHILS PERCENT AUTO 72 % (41-73); NRBC ABSOLUTE 0.00 K/mm3 (0.00-0.02); NRBC Auto 0.0 /100 WBC (0.0-0.2); Platelet Count 467 K/mm3 (150-400); RDW Coefficient Variation 13.9 % (11.7-14.2); RDW Standard Deviation 43.1 fL (35.1-46.3)
[2025-05-07 06:12] LABS: Alanine Aminotransfer (ALT/SGP 26.0 U/L (12-78); Albumin, Blood 2.5 g/dL (3.4-5.0); Albumin/Globulin Ratio 0.5 (0.8-1.8); Anion Gap 10.0 mmol/L (3-11); Aspartate Aminotrans (AST/SGOT 15.0 U/L (12-37); Bilirubin, Total 0.1 mg/dL (0.1-1.0); Blood Urea Nitrogen 22.0 mg/dL (8-24); CO2, Blood 28.0 mmol/L (21-32); Calcium, Blood 8.7 mg/dL (8.5-10.1); Chloride, Blood 102.0 mmol/L (98-108); Creatinine, Blood 0.74 mg/dL (0.40-1.00); Globulin, Blood 4.8 g/dL (2.2-4.0); Glucose, Blood 117.0 mg/dL (70-99); Potassium, Blood 3.8 mmol/L (3.5-5.5); Sodium, Blood 136.0 mmol/L (136-145); Total Protein, Blood 7.3 g/dL (6.4-8.2)
--- NOTE | 2025-05-07 06:39 | NUR ---
Shift Summary Pt abdomen still very painful, she would report 8/10 abd pain and requested IV morphine twice for breakthrough pain. She is on scheduled oxycodone 10 mg Q4. Pt is on IV steriods which she states are making her anxious and hungry. Gave Atarax for anxiety PRN. Pt was requesting a high volume of snacks, I advised against sugar and high volumes of food as it could exacerbate chrons flare up and pain. Pt is AOx4, indepnedent in the room.
[2025-05-07 07:16] VITALS: BP 110/61
[2025-05-07] MEDS ORDERED: Sod Ferric Gluc Complx/Sucrose 125 MG in NS 100 ML IV SCH (11:18)
[2025-05-07] MEDS ORDERED: NS 250 ML IV PRN (13:05)
[2025-05-07] MEDS ORDERED: HYDROmorphone HCl/Pf 1MG SYR IV PRN (14:30)
[2025-05-07 15:09] VITALS: BP 130/89
[2025-05-07 20:18] VITALS: BP 128/87
--- NOTE | 2025-05-07 20:25 | NUR ---
SHIFT SUMMARY- PT HAS HAD NO ACUTE CHANGE TODAY T/O THE DAY. MD CAME TO SEE HER AND THEY DISCUSSED CHANGING THE PAIN MEDICATION. PT DID RECIEVE IV IRON INFUSION. PT MEDICATED FREQUENTLY FOR PAIN. BEDSIDE REPORT COMPLETED, PT SLEEPING SOUNDLY AT THE TIME OF BEDSIDE REPORT, BOARD UPDATED AND FULL REPORT COMPLETED. PT IN BED, CALL LIGHT IN REACH NO S&S OF DISTRESS, ALTHOUGH IN SLEEP HER HAND IS CRADELING HER LOWER ABD IF FOR COMFORT, BUT FACE IS LAX, NO FURROWED BROW OR S&S OF PAIN WHILE SHE IS AT REST.
[2025-05-08 02:42] LABS: HAPTOGLOBIN 424 mg/dL (30-200)
[2025-05-08 04:38] VITALS: BP 99/64
[2025-05-08 05:33] LABS: BASOPHILS ABSOLUTE AUTO 0.04 K/mm3 (0.00-0.23); BASOPHILS PERCENT AUTO 0 % (0-2); EOSINOPHILS ABSOLUTE AUTO 0.00 K/mm3 (0.00-0.68); EOSINOPHILS PERCENT AUTO 0 % (0-6); Hematocrit 34.9 % (33.0-51.0); Hemoglobin 10.7 g/dL (11.5-16.0); IMMATURE GRAN ABSOLUTE AUTO 0.40 K/mm3 (0.00-0.10); IMMATURE GRAN PERCENT AUTO 2 % (0-1); LYMPHOCYTES ABSOLUTE AUTO 3.09 K/mm3 (0.84-5.20); LYMPHOCYTES PERCENT AUTO 17 % (21-46); MONOCYTES ABSOLUTE AUTO 2.33 K/mm3 (0.16-1.47); MONOCYTES PERCENT AUTO 13 % (4-13); Mean Corpuscular HGB Conc 30.7 g/dL (31.5-36.5); Mean Corpuscular Volume 86 fL (80-100); NEUTROPHILS ABSOLUTE AUTO 12.58 K/mm3 (1.96-9.15); NEUTROPHILS PERCENT AUTO 68 % (41-73); NRBC ABSOLUTE 0.00 K/mm3 (0.00-0.02); NRBC Auto 0.0 /100 WBC (0.0-0.2); Platelet Count 446 K/mm3 (150-400); RDW Coefficient Variation 14.3 % (11.7-14.2); RDW Standard Deviation 44.7 fL (35.1-46.3)
--- NOTE | 2025-05-08 05:46 | NUR ---
SHIFT SUMMARY: Pt is admitted for chohns and is a full code. Is alert and able to make needs known. ADLs have been IND. pain has been managed with PRN and routine medications. Pain has been anywhere from 4-910 to the ABD.
[2025-05-08 06:06] LABS: Alanine Aminotransfer (ALT/SGP 65 U/L (12-78); Albumin, Blood 2.3 g/dL (3.4-5.0); Albumin/Globulin Ratio 0.6 (0.8-1.8); Anion Gap 5 mmol/L (3-11); Aspartate Aminotrans (AST/SGOT 49 U/L (12-37); Bilirubin, Total 0.2 mg/dL (0.1-1.0); Blood Urea Nitrogen 24 mg/dL (8-24); C-REACTIVE PROTEIN, EXT RANGE <0.290 mg/dL (0.000-0.300); CO2, Blood 32 mmol/L (21-32); Calcium, Blood 8.4 mg/dL (8.5-10.1); Chloride, Blood 102 mmol/L (98-108); Creatinine, Blood 0.66 mg/dL (0.40-1.00); Globulin, Blood 4.1 g/dL (2.2-4.0); Glucose, Blood 106 mg/dL (70-99); Potassium, Blood 4.2 mmol/L (3.5-5.5); Sodium, Blood 135 mmol/L (136-145); Total Protein, Blood 6.4 g/dL (6.4-8.2)
--- NOTE | 2025-05-08 09:57 | NUR ---
CALLED DR PAYNE- PT IV STARTED LEAKING WHEN FLUSH WAS ATTEMPTED THIS AM PRIOR TO STEROID ADMINISTRATION. PT DC'D HER OWN IV. TELEVISION SERVICE ENGINEER WILL USE US TO ATTEMPT TO PLACE A NEW LINE FERLICIT DOCUMENTATION UNDONE. SPOKE TO MD STEROID DOSE WAS CHANGED TO 40MG STARTING THIS EVENING. ORDER CHANGED TO START NOW THE PT DID NOT RECIEVE THE 60 MG DOSE.
[2025-05-08] MEDS ORDERED: Nystatin 100,000 Unit/ML Susp 5 ML UDC SS SCH (13:00)
--- NOTE | 2025-05-08 16:46 | NUR ---
SHIFT SUMMARY- PT ALERT, ORIENTED AND INDEPENDENT IN THE ROOM. PT HAS HAD PAIN T/O THE SHIFT. DR CAME TO SEE HER EARLIER AND HER MOTHER WAS PRESENT, THE PT BECAME IRRITABLE WITH HER MOTHER. DR CAME BACK THIS EVENING TO TALK WITH THE PT WITHOUT HER MOTHER. PT SHARES THAT SHE FEELS VERY IRRITABLE, SHE HAS HAD STEROIDS SINCE ADMISSION THAT COULD BE CAUSING HER TO BE IRRITABLE, AND SHE KNOWS THAT. PT SHARES THAT SHE WANTS FOOD BUT WHEN SHE EATS SHE HAS PAIN. IS AWARE. PT HAS A SORE THROAT AND WAS STARTED ON NYSTATIN SWISH AND SWALLOW FOR THRUSH. PT LOST IV ACCESS AND HAS A NEW PG IN THE RIGHT UPPER ARM. SHE IS SITTING UP IN BED, CALL LIGHT IN REACH NO S&S OF DISTRESS NOTED AT THIS TIME. WILL PASS ON TO NIGHT RN IN BEDSIDE REPORT.
[2025-05-08 19:29] VITALS: BP 129/89
[2025-05-09 03:53] VITALS: BP 112/63
[2025-05-09 05:32] LABS: BASOPHILS ABSOLUTE AUTO 0.04 K/mm3 (0.00-0.23); BASOPHILS PERCENT AUTO 0 % (0-2); EOSINOPHILS ABSOLUTE AUTO 0.00 K/mm3 (0.00-0.68); EOSINOPHILS PERCENT AUTO 0 % (0-6); Hematocrit 32.8 % (33.0-51.0); Hemoglobin 10.2 g/dL (11.5-16.0); IMMATURE GRAN ABSOLUTE AUTO 0.60 K/mm3 (0.00-0.10); IMMATURE GRAN PERCENT AUTO 3 % (0-1); LYMPHOCYTES ABSOLUTE AUTO 2.76 K/mm3 (0.84-5.20); LYMPHOCYTES PERCENT AUTO 15 % (21-46); MONOCYTES ABSOLUTE AUTO 2.07 K/mm3 (0.16-1.47); MONOCYTES PERCENT AUTO 12 % (4-13); Mean Corpuscular HGB Conc 31.1 g/dL (31.5-36.5); Mean Corpuscular Volume 84 fL (80-100); NEUTROPHILS ABSOLUTE AUTO 12.47 K/mm3 (1.96-9.15); NEUTROPHILS PERCENT AUTO 70 % (41-73); NRBC ABSOLUTE 0.00 K/mm3 (0.00-0.02); NRBC Auto 0.0 /100 WBC (0.0-0.2); Platelet Count 440 K/mm3 (150-400); RDW Coefficient Variation 14.7 % (11.7-14.2); RDW Standard Deviation 44.1 fL (35.1-46.3)
[2025-05-09 05:57] LABS: Alanine Aminotransfer (ALT/SGP 159.0 U/L (12-78); Albumin, Blood 2.4 g/dL (3.4-5.0); Albumin/Globulin Ratio 0.6 (0.8-1.8); Anion Gap 9.0 mmol/L (3-11); Aspartate Aminotrans (AST/SGOT 93.0 U/L (12-37); Bilirubin, Total 0.2 mg/dL (0.1-1.0); Blood Urea Nitrogen 25.0 mg/dL (8-24); CO2, Blood 29.0 mmol/L (21-32); Calcium, Blood 8.1 mg/dL (8.5-10.1); Chloride, Blood 101.0 mmol/L (98-108); Creatinine, Blood 0.62 mg/dL (0.40-1.00); Globulin, Blood 4.0 g/dL (2.2-4.0); Glucose, Blood 89.0 mg/dL (70-99); Potassium, Blood 4.1 mmol/L (3.5-5.5); Sodium, Blood 135.0 mmol/L (136-145); Total Protein, Blood 6.4 g/dL (6.4-8.2)
[2025-05-09 07:37] VITALS: BP 99/59
[2025-05-09 16:01] VITALS: BP 120/88
--- NOTE | 2025-05-09 18:07 | NUR ---
PT PLEASANT WITH ANXIETY TODAY. REGULARLY REQUESTS PAIN MEDS AND ANX MEDS. USUALLY WANTS OXYCODONE LATER. ALL PT INTERACTION IS WITH A FEMALE AIDE ANYTIME SHE OUT OF BED, PT OFTEN RUNS TO BATHROOM ONLY IN UNDERWEAR. PT ROOM DOOR OPEN AT ALL TIMES I AM IN ROOM. PT STATES PAIN MANAGED WITH AVAIL MEDS. STATES FEELING SOME BETTER. NO OTHER NEW CONCERNS NOTED. INDEPENDANT IN ROOM. BED IN LOW POSITION, CALL LITE IN REACH, CALLS APPROP.
[2025-05-09 19:17] VITALS: BP 133/89
--- NOTE | 2025-05-10 06:01 | NUR ---
SHIFT SUMMARY PT A&OX4 AND ANSWERS QUESTIONS APPROPRIATELY.PT INDEPENDENT IN ROOM AND TRANSFERRED INDEPENDENTLY TO THE BR. VSS, NO COMPLAINTS OF CP/PRESSURE OR SOB. PT MEDICATED PER EMAR SCHEDULED AND PRN. PT FAMILY MEMBER AT BEDSIDE. PT SPENT MOST OF SHIFT IN BED OR IN ROOM QUIETLY. NO ACUTE EVENTS AT THIS TIME. PT LEFT IN A POSITION OF SAFETY WITH FALL PRECAUTIONS IN PLACE AND CALL LIGHT IN REACH.
[2025-05-10 07:24] VITALS: BP 100/84
--- NOTE | 2025-05-10 13:32 | NUR ---
NOTE PATIENT WANTED TO WAIT ON OXYCODONE, SHE WILL CALL WHEN SHE IS READY FOR IT
[2025-05-10 13:57] LABS: BASOPHILS ABSOLUTE AUTO 0.08 K/mm3 (0.00-0.23); BASOPHILS PERCENT AUTO 0 % (0-2); EOSINOPHILS ABSOLUTE AUTO 0.01 K/mm3 (0.00-0.68); EOSINOPHILS PERCENT AUTO 0 % (0-6); Hematocrit 36.8 % (33.0-51.0); Hemoglobin 11.5 g/dL (11.5-16.0); IMMATURE GRAN ABSOLUTE AUTO 0.91 K/mm3 (0.00-0.10); IMMATURE GRAN PERCENT AUTO 4 % (0-1); LYMPHOCYTES ABSOLUTE AUTO 2.68 K/mm3 (0.84-5.20); LYMPHOCYTES PERCENT AUTO 12 % (21-46); MONOCYTES ABSOLUTE AUTO 2.21 K/mm3 (0.16-1.47); MONOCYTES PERCENT AUTO 10 % (4-13); Mean Corpuscular HGB Conc 31.3 g/dL (31.5-36.5); Mean Corpuscular Volume 84 fL (80-100); NEUTROPHILS ABSOLUTE AUTO 16.46 K/mm3 (1.96-9.15); NEUTROPHILS PERCENT AUTO 74 % (41-73); NRBC ABSOLUTE 0.00 K/mm3 (0.00-0.02); NRBC Auto 0.0 /100 WBC (0.0-0.2); Platelet Count 499 K/mm3 (150-400); RDW Coefficient Variation 15.0 % (11.7-14.2); RDW Standard Deviation 45.3 fL (35.1-46.3)
[2025-05-10 14:09] LABS: Alanine Aminotransfer (ALT/SGP 210.0 U/L (12-78); Albumin, Blood 3.0 g/dL (3.4-5.0); Albumin/Globulin Ratio 0.7 (0.8-1.8); Anion Gap 7.0 mmol/L (3-11); Aspartate Aminotrans (AST/SGOT 101.0 U/L (12-37); Bilirubin, Total 0.3 mg/dL (0.1-1.0); Blood Urea Nitrogen 23.0 mg/dL (8-24); CO2, Blood 32.0 mmol/L (21-32); Calcium, Blood 8.9 mg/dL (8.5-10.1); Chloride, Blood 97.0 mmol/L (98-108); Creatinine, Blood 0.69 mg/dL (0.40-1.00); Globulin, Blood 4.4 g/dL (2.2-4.0); Glucose, Blood 93.0 mg/dL (70-99); Potassium, Blood 4.4 mmol/L (3.5-5.5); Sodium, Blood 132.0 mmol/L (136-145); Total Protein, Blood 7.4 g/dL (6.4-8.2)
[2025-05-10 15:41] VITALS: BP 116/77
--- NOTE | 2025-05-10 16:00 | NUR ---
NOTE PATIENT HAS BEEN PULLING UP TEG DRESSING ON POWERGLIDE, REFUSED TO LET NURSES WRAP HER ARM PRIOR TO SHOWER, SHE DID IT HER SELF. DRESSING GOT WET AND HAD TO BE CHANGED AGAIN. PATIENT WAS INSTRUCTED NOT TO PULL AT ANY OF THE DRESSING AROUND OR WITHIN THE POWERGLIDE SITE. INSTRUCTED PATIENT TO LET NURSES WRAP HER ARM WHEN SHOWERING TO ASSURE IT IS DONE CORRECTLY TO AVOID GETTING THE AREA WET. INFORMED PATIENT THIS COULD CAUSE THE POWERGLIDE TO BE DISPLACED AND WE WOULD HAVE TO REMOVE IT.
--- NOTE | 2025-05-10 19:23 | NUR ---
END OF SHIFT NOTE PATIENT RESTING IN BED WITH BOYFRIEND IN BED ALSO. A&O4, ABLE TO MAKE NEEDS KNOWN. IND IN ROOM AND TO BATHROOM. PATIENT SHOWERED TODAY, WITH THE ASSISTANCE OF HER BOYFRIEND. REFUSED TO LET MEDICAL STAFF WRAP HER IV, MULTIPLE DRESSING CHANGES TO POWERGLIDE. PATIENT EDUCATED ABOUT IMPORTANCE OF LEAVING THE POWERGLIDE ALONE. PATIENT DENIES NEEDS AT THIS TIME. NO OTHER CONCERNS FOR THIS SHIFT.
[2025-05-10 19:31] VITALS: BP 127/82
[2025-05-11 03:24] VITALS: BP 129/78
--- NOTE | 2025-05-11 06:29 | NUR ---
SHIFT SUMMARY: PT MEDICATED PER EMAR. PT UP TO THE BTHRM SEVERAL TIMES THROUGH OUT THE SHIFT. CARE SWITCHED OVER AT 0330
[2025-05-11 07:20] VITALS: BP 119/84
[2025-05-11] MEDS ORDERED: HYDHCL25 PO (11:35)
[2025-05-11] MEDS ORDERED: NYSTATIN100000 U13 PO (11:37)
--- NOTE | 2025-05-11 12:09 | NUR ---
DISCHARGE NOTE: A&OX4 PRIOR TO D/C. DISCUSSED D/C PLAN, EDUCATION, AND FOLLOW UP APPOINTMENTS. MEDICATIONS FAXED TO PHARMACY. POWERGLIDE REMOVED. MOTHER GATHERED PT BELONGINGS AND ESCORTED HER OUT OF THE BUILDING.
== END 2025-05-11 12:36 | disposition home or self-care (01) | DRG 386 ==
LOC: MEDS 16:30
PROVIDERS: ADMIT Family Medicine
DX: K50.90 Crohn's disease, unspecified, without complications (principal); B37.89 Other sites of candidiasis; E87.1 Hypo-osmolality and hyponatremia; F32.A Depression, unspecified; Z98.890 Other specified postprocedural states; Z79.52 Long term (current) use of systemic steroids; K52.9 Noninfective gastroenteritis and colitis, unspecified; K21.9 Gastro-esophageal reflux disease without esophagitis; F41.9 Anxiety disorder, unspecified; D64.9 Anemia, unspecified
CPT/HCPCS: 36415; 74019; 80048; 80053; 82607; 82728; 82746; 83010; 83540; 83550; 83615; 83993; 85025; 85045; 86140; 87637; 94760; 94762; A9270; J1171; J2270; J2405; J2470; J2916; J2919; J3010; J7050; J7120